=== PATIENT | female | born 1985 | race Caucasian/White ===

== ENCOUNTER 2017-02-13 13:57 | Emergency (ER) | payer OTHER ==
[~2017-02-13] VITALS: Ht 170.2 cm; Wt 98.4 kg
[~2017-02-13 13:57] MED LIST: ABL5; REVIEWED
[2017-02-13 14:07] VITALS: TEMP 36.7; Ht 170.2 cm; Wt 98.4 kg
[2017-02-13 15:38] VITALS: BP 132/73; PULSE 77; O2SAT 98
--- NOTE | 2017-02-13 20:13 | EMERGENCY ROOM VISIT NOTE ---
History Report prepared by Demario: Juan Jeffries Under the Supervision of: Dr. Bill Remy D.O. First contact with patient: 14:26 Chief Complaint: MENTAL HEALTH EVALUATION Stated Complaint: MENTAL HEALTH EVALUATION History of Present Illness The patient is a 31 year old female who presents to the Emergency Room with complaints of persistent anxiety starting 4 years ago. The patient was placed on Abilify from 2004 to 2012. In 2012, the patient was taken off of her anxiety medications. She did not feel comfortable with being taken off of the medication but her psychiatrist thought that she was doing well and took her off of it. She has not been on any psychiatric medications since 2012. Since then, her anxiety has been persistent. She feels as though she needs to be placed back on the Abilify and should never have been taken off of it. She wants to be placed on the Abilify now but is unable to get a psychiatrist appointment until March 29. The patient patient came to the Emergency Room today to be placed back on it. She states that she was functioning better when she was on it. As per mother, the patient is not functioning as well as she was prior to being taken off of the Abilify. Her speech starts to dwindle when her anxiety worsens. The patient currently denies any suicidal or homicidal ideation. She reports a normal appetite and a normal fluid intake. She currently denies any pain. She denies any fevers, chills, or any other complaints. Source of History: patient Onset: 4 years ago Position: other (global) Symptom Intensity: No pain Quality: other (anxiety) Timing: other (persistent) Associated Symptoms: No fevers, No chills Review of Systems See HPI for pertinent positives & negatives. A total of 10 systems reviewed and were otherwise negative. Past Medical & Surgical Medical Problems: (1) Anorexia (2) Anxiety Family History Patient reports no known family medical history. Social History Smoking Status: Never Smoker Marital Status: single Occupation Status: unemployed Current/Historical Medications Miscellaneous Medications Aripiprazole (Abilify *) [Reviewed 10/26/09] Allergies Coded Allergies: Nickel (Unverified Adverse Reaction, Mild, RASH, 10/02/09) Physical Exam Vital Signs Date Time Temp Pulse Resp B/P (MAP) Pulse Ox O2 Delivery O2 Flow Rate FiO2 02/13/17 15:38 77 18 132/73 98 02/13/17 14:07 36.7 84 18 144/74 97 Room Air Physical Exam CONSTITUTIONAL/VITAL SIGNS: Reviewed / noted above. GENERAL: Non-toxic in appearance. INTEGUMENTARY: Warm, dry, and [place]. HEAD: Normocephalic. EYES: without scleral icterus or trauma. ENT/OROPHARYNX: clear and moist. LYMPHADENOPATHY/NECK: Is supple without lymphadenopathy or meningismus. RESPIRATORY: Lungs clear and equal. CARDIOVASCULAR: Regular rate and rhythm. GI/ABDOMEN: Soft and nontender. No organomegaly or pulsatile mass. No rebound or guarding. Normal bowel sounds. EXTREMITIES: Warm and well perfused. BACK: No CVA tenderness. NEUROLOGICAL: Intact without focal deficits. PSYCHIATRIC: normal affect. MUSCULOSKELETAL: Normally developed with good muscle tone. Medical Decision & Procedures ED Course 1426: Previous medical records were reviewed. The patient was evaluated in room A06. A complete history and physical examination was performed. 1500: On reevaluation, the patient is resting comfortably. I discussed the results and findings with the patient and her mother. They verbalized agreement of the treatment plan. The patient was discharged home. Medical Decision Medication Reconciliation: I attest that I have personally reviewed the patient' s current medication list. Patient was found to have a slightly elevated blood pressure due to circumstances. I do not believe that the patient requires hypertension monitoring. differential includes toxic ingestions, self-mutilation, suicidal ideation, suicide attempt, depression. This is a 31-year-old female who presents to the ED with a chief complaint of wanting a prescription for Abilify. The patient states that she has been on it for years ago and she feels like she needs to be back on it. She denies being suicidal or homicidal. The patient's physical exam was unremarkable. She denies any thoughts of harming herself. After discussing with the patient, she tells me that she has an appointment to see a psychiatrist on the . The patient was told that these medications are not medications that her normally prescribed by emergency physician. She was recommended to follow- up with her PCP anyway for her psychiatry visit for this medication. She is felt to be stable for discharge. The patient does not appear to be anxious at this time. Impression Primary Impression: Anxiety and depression Scribe Attestation The scribe's documentation has been prepared under my direction and personally reviewed by me in its entirety. I confirm that the note above accurately reflects all work, treatment, procedures, and medical decision making performed by me. Departure Information Dispostion Home / Self-Care Referrals Geoffrey Vargas M.D. (PCP) Forms HOME CARE DOCUMENTATION FORM, IMPORTANT VISIT INFORMATION Patient Instructions My [facility]
== END 2017-02-13 15:39 | disposition home or self-care (01) ==
LOC: C.EDB 13:59 → C.EDA 15:39
DX: F41.8 Other specified anxiety disorders (principal); Z79.899 Other long term (current) drug therapy; Z91.09 Other allergy status, other than to drugs and biological substances

== ENCOUNTER 2017-02-15 14:21 | Inpatient (IN) | payer OTHER ==
[~2017-02-15] VITALS: Ht 172.7 cm; Wt 101.1 kg
[2017-02-15 14:41] VITALS: O2SAT 96
[2017-02-15 15:32] LABS: URINE APPEARANCE CLEAR (CLEAR); URINE BILIRUBIN NEG (NEG); URINE COLOR YELLOW; URINE EPITHELIAL CELL AUTO 20-30 /lpf (0-5); URINE NITRITE NEG (NEG); URINE PH 6.5 (4.5-7.5); URINE SPECIFIC GRAVITY 1.028 (1.000-1.030); UROBILINOGEN NEG (NEG)
[2017-02-15 15:33] LABS: MANUAL MICROSCOPIC REQUIRED? NO; REVIEW REQ? YES
[2017-02-15 15:51] LABS: BASO % 0.2 %; BASO ABS # 0.02 K/uL (0-0.2); COMPLETE YES; EOS % 0.1 %; HEMATOCRIT 38.2 % (37-47); IG% 0.1 %; LYMPH % 17.4 %; LYMPH ABS # 1.66 K/uL (1.2-3.4); MEAN CELL VOLUME 87.2 fL (80-100); MEAN CORPUSCULAR HEMOGLOBIN 30.8 pg (25-34); MEAN CORPUSCULAR HGB CONC 35.3 g/dl (32-36); MEAN PLATELET VOLUME 10.1 fL (7.4-10.4); MONO % 7.6 %; NEUT % 74.6 %; PLATELET COUNT 282 K/uL (130-400); RED BLOOD COUNT 4.38 M/uL (4.2-5.4); WHITE BLOOD COUNT 9.52 K/uL (4.8-10.8)
[2017-02-15 15:51] LABS: BENZODIAZEPINE, URINE NEG (NEG); COCAINE,URINE NEG (NEG); PHENCYCLIDINE, URINE NEG (NEG)
[2017-02-15 16:11] LABS: ALT/SGPT 28 U/L (12-78); AST/SGOT 15 U/L (15-37); BLOOD UREA NITROGEN 13 mg/dl (7-18); BUN/CREATININE RATIO 23.5 (10-20); CALCIUM 8.8 mg/dl (8.5-10.1); CARBON DIOXIDE 26 mmol/L (21-32); CHLORIDE 105 mmol/L (98-107); CREATININE 0.57 mg/dl (0.60-1.20); GLUCOSE 94 mg/dl (70-99); POTASSIUM 3.1 mmol/L (3.5-5.1); SODIUM 140 mmol/L (136-145)
[2017-02-15 16:22] LABS: ALKALINE PHOSPHATASE 71 U/L (45-117); THYROID STIMULATING HORMONE 0.686 uIu/ml (0.300-4.500)
--- NOTE | 2017-02-15 16:22 | DIAGNOSTIC IMAGING REPORT ---
LEFT TOE(S) MIN 2 VIEWS CLINICAL HISTORY: 31 years-old Female presenting with 1st toe . TECHNIQUE: Frontal and lateral views of the left first toe were obtained. COMPARISON: None. FINDINGS: No acute fracture, malalignment, or radiopaque foreign body. The left first metatarsophalangeal joint and first interphalangeal joints are congruent. No significant degenerative change. IMPRESSION: 1. No acute osseous injury of the left first toe. Electronically signed by: Stevenson Hussein M.D. 02/15/2017 4:21 PM Dictated Date/Time: 02/15/2017 4:20 PM
--- NOTE | 2017-02-15 17:00 | DIAGNOSTIC IMAGING REPORT ---
CT OF THE HEAD WITHOUT CONTRAST CLINICAL HISTORY: Multiple falls. COMPARISON STUDY: No previous studies for comparison. CT DOSE: 1074.96 mGy.cm TECHNIQUE: Helical axial images of the head were obtained without IV contrast. Automated exposure control was utilized for the study. FINDINGS: No acute intracranial hemorrhage, midline shift or mass effect is present. Ventricular system is normal. Basilar cisterns are patent. There are no extra-axial collections. Hitchcock-white differentiation is maintained. There is no calvarial fracture. Visualized portions of the sinuses and mastoid air cells are clear. IMPRESSION: 1. No acute intracranial findings. 2. No calvarial fracture. Electronically signed by: Jay Jay Ramirez M.D. 02/15/2017 4:59 PM Dictated Date/Time: 02/15/2017 4:57 PM
--- NOTE | 2017-02-15 17:26 | EMERGENCY ROOM VISIT NOTE ---
History Report prepared by Demario: Romi Winchester Under the Supervision of: Dr. Jose Linder D.O. First contact with patient: 15:06 Chief Complaint: MENTAL HEALTH EVALUATION Stated Complaint: Mental Health History of Present Illness The patient is a 31 year old female who presents to the Emergency Room with complaints of worsening paranoia over the past three days. The patient's mother states that the patient has a history of schizophrenia and was previously on Abilify from 5217-3785. She states that the patient was taken off Abilify by her psychiatrist because the patient was doing exceptionally well. The patient's mother states that for the past four years the patient has continued to do well up until three days ago. She states that the patient came to her three days ago and requested that she gets help because she was not feeling herself. The patient's mother states that they tried getting in contact with her psychiatrist but found that he had retired. She states that the patient was referred to a new psychiatrist, but will not be seen until March 29. The patient's mother states that the patient required immediate attention and states that the patient was evaluated at [facility] and the emergency department, but denies getting any immediate help. She states that she took the patient to [place] two days ago and talked. The patient's mother states that she then took the patient home so she could continue working on a project at home. She states that the patient became more paranoid, secluded, a decrease in appetite, and had more broken up speech. The patient's mother states that the patient took a 500 pound treadmill from their house to the garbage after feeling that it was a sign from the devil. She states that the patient has decompensated and has not showered in several days. Pt denies headache, change in vision, fevers, chest pain, shortness of breath, nausea, vomiting, diarrhea, pain with urination, and melena. Source of History: parent (mother) Onset: three days ago Position: other (global) Quality: other (paronia) Timing: worsening Note: Associated Symptoms: seclusion, decrease in appetite, broken speech, decompensation, not showered Review of Systems See HPI for pertinent positives & negatives. A total of 10 systems reviewed and were otherwise negative. Past Medical & Surgical Medical Problems: (1) Anorexia (2) Anxiety (3) Schizophrenia Family History Patient reports no known family medical history. Social History Smoking Status: Former Smoker Marital Status: single Housing Status: lives with family Occupation Status: unemployed Current/Historical Medications No Active Prescriptions or Reported Meds Allergies Coded Allergies: Nickel (Unverified Adverse Reaction, Mild, RASH, 02/15/17) Physical Exam Vital Signs Date Time Temp Pulse Resp B/P (MAP) Pulse Ox O2 Delivery O2 Flow Rate FiO2 02/15/17 14:41 37.0 72 20 131/105 96 Room Air Physical Exam GENERAL: Sitting up in bed, disheveled, no acute distress. EYE EXAM: normal conjunctiva, PERRL and EOM's intact OROPHARYNX: no exudate, no erythema, lips, buccal mucosa, and tongue normal and mucous membranes are moist NECK: supple, no nuchal rigidity, no adenopathy, non-tender CHEST WALL: Stable to compression anteriorly and posteriorly. LUNGS: Clear to auscultation. Normal chest wall mechanics HEART: no murmurs, S1 normal and S2 normal ABDOMEN: abdomen soft, non-tender, normo-active bowel sounds, no masses, no rebound or guarding. PELVIS: Stable to compression anteriorly and posteriorly. BACK: Back is symmetrical on inspection and there is no deformity, no midline tenderness, no CVA tenderness. SKIN: Diffuse bruising on upper and lower extremities. No rashes UPPER EXTREMITIES: upper extremities are grossly normal. LOWER EXTREMITIES: No pitting edema. NEURO EXAM: Alert, intermittently making 2-3 word statements, poor eye contact, no focal deficit. PSYCH: Flat affect with delusions and paranoia per mom, withdrawn, not answering all questions. Medical Decision & Procedures ER Provider Diagnostic Interpretation: Radiology results as stated below per my review and the radiologist's interpretation: LEFT TOE(S) MIN 2 VIEWS CLINICAL HISTORY: 31 years-old Female presenting with 1st toe . TECHNIQUE: Frontal and lateral views of the left first toe were obtained. COMPARISON: None. FINDINGS: No acute fracture, malalignment, or radiopaque foreign body. The left first metatarsophalangeal joint and first interphalangeal joints are congruent. No significant degenerative change. IMPRESSION: 1. No acute osseous injury of the left first toe. Electronically signed by: Stevenson Hussein M.D. 02/15/2017 4:21 PM Dictated Date/Time: 02/15/2017 4:[address] OF THE HEAD WITHOUT CONTRAST CLINICAL HISTORY: Multiple falls. COMPARISON STUDY: No previous studies for comparison. CT DOSE: 1074.96 mGy.cm TECHNIQUE: Helical axial images of the head were obtained without IV contrast. Automated exposure control was utilized for the study. FINDINGS: No acute intracranial hemorrhage, midline shift or mass effect is present. Ventricular system is normal. Basilar cisterns are patent. There are no extra-axial collections. Hitchcock-white differentiation is maintained. There is no calvarial fracture. Visualized portions of the sinuses and mastoid air cells are clear. IMPRESSION: 1. No acute intracranial findings. 2. No calvarial fracture. Electronically signed by: Jay Jay Ramirez M.D. 02/15/2017 4:59 PM Dictated Date/Time: 02/15/2017 4:57 PM Laboratory Results 02/15/17 15:21 Red Blood Count 4.38, Mean Corpuscular Volume 87.2, Mean Corpuscular Hemoglobin 30.8, Mean Corpuscular Hemoglobin Concent 35.3, Mean Platelet Volume 10.1, Neutrophils (%) (Auto) 74.6, Lymphocytes (%) (Auto) 17.4, Monocytes (%) (Auto) 7.6, Eosinophils (%) (Auto) 0.1, Basophils (%) (Auto) 0.2, Neutrophils # (Auto) 7.10, Lymphocytes # (Auto) 1.66, Monocytes # (Auto) 0.72, Eosinophils # (Auto) 0.01, Basophils # (Auto) 0.02 02/15/17 15:21 Test 02/15/17 00:00 02/15/17 15:20 02/15/17 15:21 Urine Color YELLOW Urine Appearance CLEAR (CLEAR) Urine pH 6.5 (4.5-7.5) Urine Specific [place] 1.028 (1.000-1.030) Urine Protein 1+ (NEG) Urine Glucose (UA) NEG (NEG) Urine Ketones TRACE (NEG) Urine Occult Blood NEG (NEG) Urine Nitrite NEG (NEG) Urine Bilirubin NEG (NEG) Urine Urobilinogen NEG (NEG) Urine Leukocyte Esterase NEG (NEG) Urine WBC (Auto) 1-5 /hpf (0-5) Urine RBC (Auto) 0-4 /hpf (0-4) Urine Hyaline Casts (Auto) 1-5 /lpf (0-5) Urine Epithelial Cells (Auto) 20-30 /lpf (0-5) Urine Bacteria (Auto) NEG (NEG) Urine Crystals CALCIUM OXALATE (NONE Urine Opiates Screen NEG (NEG) Urine Methadone, Qualitative NEG (NEG) Urine Barbiturates NEG (NEG) Urine Phencyclidine (PCP) Level NEG (NEG) Ur Amphetamine/Methamphetamine NEG (NEG) MDMA (Ecstasy) Screen NEG (NEG) Urine Benzodiazepines Screen NEG (NEG) Urine Cocaine Metabolite NEG (NEG) Urine Marijuana (THC) NEG (NEG) Bedside Glucose 90 mg/dl (70-90) White Blood Count 9.52 K/uL (4.8-10.8) Red Blood Count 4.38 M/uL (4.2-5.4) Hemoglobin 13.5 g/dL (12.0-16.0) Hematocrit 38.2 % (37-47) Mean Corpuscular Volume 87.2 fL (80-100) Mean Corpuscular Hemoglobin 30.8 pg (25-34) Mean Corpuscular Hemoglobin Concent 35.3 g/dl (32-36) Platelet Count 282 K/uL (130-400) Mean Platelet Volume 10.1 fL (7.4-10.4) Neutrophils (%) (Auto) 74.6 % Lymphocytes (%) (Auto) 17.4 % Monocytes (%) (Auto) 7.6 % Eosinophils (%) (Auto) 0.1 % Basophils (%) (Auto) 0.2 % Neutrophils # (Auto) 7.10 K/uL (1.4-6.5) Lymphocytes # (Auto) 1.66 K/uL (1.2-3.4) Monocytes # (Auto) 0.72 K/uL (0.11-0.59) Eosinophils # (Auto) 0.01 K/uL (0-0.5) Basophils # (Auto) 0.02 K/uL (0-0.2) RDW Standard Deviation 40.3 fL (36.4-46.3) RDW Coefficient of Variation 12.5 % (11.5-14.5) Immature Granulocyte % (Auto) 0.1 % Immature Granulocyte # (Auto) 0.01 K/uL (0.00-0.02) Anion Gap 9.0 mmol/L (3-11) Estimated GFR () 142.2 Estimated GFR (Non- 122.7 BUN/Creatinine Ratio 23.5 (10-20) Calcium Level 8.8 mg/dl (8.5-10.1) Total Bilirubin 0.4 mg/dl (0.2-1) Direct Bilirubin < 0.1 mg/dl (0-0.2) Aspartate Amino Transf (AST/SGOT) 15 U/L (15-37) Alanine Aminotransferase (ALT/SGPT) 28 U/L (12-78) Alkaline Phosphatase 71 U/L (45-117) Total Protein 7.1 gm/dl (6.4-8.2) Albumin 3.9 gm/dl (3.4-5.0) Thyroid Stimulating Hormone (TSH) 0.686 uIu/ml (0.300-4.500) Ethyl Alcohol mg/dL < 3.0 mg/dl (0-3) Laboratory results per my review. Medications Administered Medications (Trade) Dose Ordered Sig/Areli Route Start Time Stop Time Status Last Admin Dose Admin Lorazepam (Ativan Tab) 1 mg NOW STAT SL 02/15/17 17:51 02/15/17 17:52 DC 02/15/17 18:52 1 MG Risperidone (Risperdal Tab) 1 mg NOW ONCE PO 02/15/17 18:00 02/15/17 18:02 DC 02/15/17 18:53 1 MG ED Course ED COURSE: Vital signs were reviewed and showed normal vitals The patients medical record was reviewed The above diagnostic studies were performed and reviewed. ED treatments and interventions as stated above. 1517: The patient was evaluated in room A5. A complete history and physical examination was performed. 1720: The patient is currently medically clear and [facility] is evaluating the patient. 1751: Ordered Ativan Tab 1 mg SL. 1759: Per [facility], the patient has been accepted to their department for further evaluation and treatment. The patient's family is in agreement with the treatment plan. 1800: Ordered Risperidone 1 mg PO. Medical Decision Differential diagnosis: Etiologies such as mood disorder, infection, hypoglycemia, electrolyte abnormalities, cardiac sources, intracerebral event, toxicologic, neurologic, as well as others were entertained. Medication Reconciliation: I attest that I have personally reviewed the patient' s current medication list. Blood pressure screening: Patient was found to have normal blood pressure on screening and does not require follow-up. Patient is a 31-year-old female who presents the ER for delusions, depression and psychosis. She was brought in on a 302 warrant by her mother. She has been moving furniture around the house and took a treadmill out of the house because it was a sign of the devil. She is very reserved on my exam. CT head was negative. Labs were unremarkable. She does have multiple bruises. X-ray of her left foot was negative. She does clearly need inpatient treatment. She is evaluated by psychiatry and they agreed. She was admitted to [facility] [address] following a dose of Ativan. Impression Primary Impression: Mood disorder Additional Impression: Psychosis Scribe Attestation The scribe's documentation has been prepared under my direction and personally reviewed by me in its entirety. I confirm that the note above accurately reflects all work, treatment, procedures, and medical decision making performed by me. 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
[2017-02-15] MEDS ORDERED: LORAZEPAM 1 MG TAB SL STA (17:51)
[2017-02-15] MEDS ORDERED: LORAZEPAM 1 MG TAB PO PRN (18:00)
[2017-02-15] MEDS ORDERED: ALUMINUM/MAGNESIUM SUSP 30 ML UDC PO PRN (18:00)
[2017-02-15] MEDS ORDERED: BISMUTH SUBSALICYLATE PER ML OMNICELL CHARGE PO PRN (18:00)
[2017-02-15] MEDS ORDERED: hydrOXYzine HCL 25 MG TAB PO PRN ×2 (18:00)
[2017-02-15] MEDS ORDERED: SODIUM CHLORIDE 0.65% NA SOLN 45 ML (OCEAN) PRN (18:00)
[2017-02-15] MEDS ORDERED: MAGNESIUM HYDROXIDE SUSP 30 ML UDC PO PRN (18:00)
[2017-02-15] MEDS ORDERED: ACETAMINOPHEN 325 MG TAB PO PRN (18:00)
[2017-02-15] MEDS ORDERED: RISPERIDONE 1 MG TAB PO ONE (18:00)
[2017-02-15] MEDS ORDERED: HALOPERIDOL LACTATE 5 MG/ML 1 ML VIAL IM PRN (18:00)
[2017-02-15 19:48] VITALS: BP 131/105; PULSE 72; TEMP 37; BMI 33.9
[2017-02-15] MEDS: RISPERIDONE ODT 1MG PO SCH (21:39)
[2017-02-16 07:02] VITALS: BP_SYST 120; BP_SYST 128; BP_DIAS 70; BP_DIAS 76; PULSE 86; PULSE 92; TEMP 37
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
[2017-02-16] MEDS: RISPERIDONE ODT 1MG PO SCH (10:03)
--- NOTE | 2017-02-16 12:36 | Psychiatric History & Physical ---
History Date of Service Feb 16, 2017. Identifying Data Petrona Simmons is a 31-year-old female who currently lives in [place], [place] with her mother. Petrona Simmons was admitted on a 201 voluntary commitment. Patient is admitted from home. The patient was brought to the ED by the family. Information provided by the patient is considered to be unreliable. Chief Complaint "I've been feeling vulnerable.". History of Present Illness The patient is a 31-year-old woman with a known diagnosis of schizophrenia. She presented yesterday in the emergency department with worsening paranoia, disorganized thinking, thought blocking, and anxiety. According to the record, the patient had been seen in the emergency room on 02/13/2017 and at that time asked for a prescription for aripiprazole, but she was referred back to an outpatient provider. The patient, herself, is not able to provide a coherent history, due to frequent thought blocking and possible distraction by auditory hallucinations. She been followed by a local psychiatrist who has since retired , and she had been referred for an outpatient evaluation by a psychiatrist, but cannot be seen until March 29. According to the patient's mother, with whom the patient lives, the patient had been showing symptoms such as decreased appetite, "broken up speech," and neglect of self-care. For example, she had not been showering. She was also demonstrating questionable judgment. For example, she had attempted to move a 500 pound [facility] Mother's report includes her assessment the patient was paranoid , and the mother noted the patient was making references to getting "signs" from "the devil." (This belief is not consistent with the patient's anabaptist or culture.) The patient, herself, reports that she had done very well on Abilify in doses that range between 5 mg and 15 mg. However, in December 2012 she ran out of her supply of Abilify, decided to "take myself off it," and felt as if she was doing reasonably well. A month later, she lost an uncle to suicide, and she felt that the fact that she was able to pass through this medical event without becoming ill was a sign that she was stable off medication. Apparently , she returned to her outpatient doctor's practice in May 2013 and according the patient her doctor agreed that it did not appear that she will require the medication any further and discontinued Abilify. She indicates that she has been lost to psychiatric follow-up since 2013. It is difficult to obtain an intercurrent history, but apparently the patient did reasonably well in the community until approximately a month ago, at which time the patient's mother began to notice the above reference symptoms of paranoia, disorganized thinking, and thought blocking. The patient has difficulty responding to questions concerning vegetative symptoms of depression. However, when I ask her repeatedly if she had been feeling sad or depressed, she became tearful, without answering the question. She also had difficulty formulating a response to questions such as, "are you having trouble sleeping," "have you noticed a change in her appetite," and "have you been having crying spells." When asked to explain her assertion that she was feeling "horrible," she circled the question repeatedly, but finally said that "people are very mean to me," in reference to people who live in [place] [facility] [place]. She is then unable to give an example of the form that the "meanness" takes, and she finally perseverated by repeatedly saying, "It makes me feel isolated [to live in [place]]. I want to move away from there. It's an hour to [place]. I'm isolated." She denies any history of neglect or abuse. She also does not endorse any history of bethanie or hypomania, and no such history is identified by the patient's mother. However, the patient's father apparently carries a diagnosis of bipolar affective disorder. Past Psychiatric History Current OP Treatment: no current treatment Prior OP Treatment: psychiatrist, therapist Prior [facility] Access to a Gun: No Suicide Attempts: No Past Medical/Surgical History History of Concussion/Seizure: No Allergies Allergies: Coded Allergies: Nickel (Unverified Adverse Reaction, Mild, RASH, 02/15/17) Home Medications No Active Prescriptions or Reported Meds Family History FH: bipolar disorder FATHER Suicide Paternal Uncle History of Suicide: Yes History of Substance Abuse: No Psychiatric History: Yes The patient reports that her paternal uncle committed suicide in 2012. She says that she does not think that he carried his psychiatric diagnosis at the time of his suicide, and she says that she doesn't know or is unable to recall the circumstances of his suicide. Alcohol Use Alcohol Use In Past 12 Months: No AUDIT Total Score: 0 Smoking Use Smoking Status: Never Smoker Substance History The patient denies any abuse of alcohol or other drugs. Personal History Lives in: [place] with her mother Education: started high school (the patient says she dropped out of high school in the ninth grade because her parents were and she wanted to move to [place] with her father. She says that she can't recall why she didn't enroll in high school in [place], but indicates that her father may have been having a manic episode at the time.) Relationship History: never (the patient says that she engaged in sexual activity when she was much younger, but has been sexually inactive for at least 10 years. She says that she has no romantic attachments, is not interested in sex, and has no plan to become .) Children: none Legal History: none Psychological Trauma History: Significant Loss Review of Systems Constitutional: denies no symptoms reported, denies see HPI, denies chills, denies diaphoresis, denies fever, denies malaise, denies weakness, denies other Eyes: denies: no symptoms, as stated in HPI, eye pain, tearing, itching, redness, discharge, double vision, visual changes, blurred vision, photophobia, other ENT: denies: no symptoms reported, see HPI, ear pain, ear discharge, loss of hearing, tinnitus, nasal pain, nasal congestion, rhinorrhea, epistaxis, sore throat, stidor, throat swelling, mouth pain, mouth swelling, dental pain, gum swelling, other Cardiovascular: denies: no symptoms reported, see HPI, chest pain, chest tightness, chest pressure, diaphoresis, palpitations, syncope, other Respiratory: denies: no symptoms reported, see HPI, cough, orthopnea, short of breath, stridor, wheezing, sputum production, cyanosis, KILPATRICK, PND, other Gastrointestinal: denies no symptoms reported, denies see HPI, denies abdominal pain, denies constipation, denies diarrhea, denies nausea, denies vomiting, denies other Genitourinary - Female: denies: no symptoms, see HPI, rash, amenorrhea, dysmenorrhea, menorrhagia, metrorrhagia, , vaginal bleeding, vaginal itching, vaginal discharge, vulvadynia, other (patient reports she has regular menses. Her most recent menstrual period was approximately 2 weeks ago.) Musculoskeletal: no symptoms reported, denies see HPI, denies back pain, denies gout, denies joint pain, denies joint swelling, denies muscle pain, denies muscle stiffness, denies neck pain, denies other Integumentary: denies change in hair/nails, denies dryness, denies lesions, denies lumps, denies rash, other (the patient has multiple ecchymoses about her forearms. She explains that this happened when she was in the process of "moving a lot of heavy things by myself" at home.) Neurologic: denies: no symptoms, see HPI, headache, numbness, paresthesias, pre -existing deficit, seizure, tingling, tremors, general weakness, tics, focal weakness, vertigo, lethargy, memory loss, dizziness, other Endocrine: denies: no symptoms, as stated in HPI, cold intolerance, heat intolerance, hair changes, goiter, polydipsia, polyuria, skin changes, other Hematologic / Lymphatic: denies: no symptoms, as stated in HPI, abnormal clotting, adenopathy, anemia, easy bleeding, easy bruising, gums bleeding, petechiae, other Examination Physical Examination A physical exam was performed in the ER prior to admission to the unit. I accept that physical as correct/medical clearance for the inpatient physical exam. Vital Signs Vital Signs Past 12 Hours Date Time Temp Pulse Resp B/P (MAP) Pulse Ox O2 Delivery O2 Flow Rate FiO2 02/16/17 07:02 37.0 86 16 128/76 92 120/70 Laboratory Results Last 24 Hours Test 02/15/17 15:20 02/15/17 15:21 Bedside Glucose 90 mg/dl White Blood Count 9.52 K/uL Red Blood Count 4.38 M/uL Hemoglobin 13.5 g/dL Hematocrit 38.2 % Mean Corpuscular Volume 87.2 fL Mean Corpuscular Hemoglobin 30.8 pg Mean Corpuscular Hemoglobin Concent 35.3 g/dl Platelet Count 282 K/uL Mean Platelet Volume 10.1 fL Neutrophils (%) (Auto) 74.6 % Lymphocytes (%) (Auto) 17.4 % Monocytes (%) (Auto) 7.6 % Eosinophils (%) (Auto) 0.1 % Basophils (%) (Auto) 0.2 % Neutrophils # (Auto) 7.10 K/uL Lymphocytes # (Auto) 1.66 K/uL Monocytes # (Auto) 0.72 K/uL Eosinophils # (Auto) 0.01 K/uL Basophils # (Auto) 0.02 K/uL RDW Standard Deviation 40.3 fL RDW Coefficient of Variation 12.5 % Immature Granulocyte % (Auto) 0.1 % Immature Granulocyte # (Auto) 0.01 K/uL Sodium Level 140 mmol/L Potassium Level 3.1 mmol/L Chloride Level 105 mmol/L Carbon Dioxide Level 26 mmol/L Anion Gap 9.0 mmol/L Blood Urea Nitrogen 13 mg/dl Creatinine 0.57 mg/dl Estimated GFR () 142.2 Estimated GFR (Non- 122.7 BUN/Creatinine Ratio 23.5 Random Glucose 94 mg/dl Calcium Level 8.8 mg/dl Total Bilirubin 0.4 mg/dl Direct Bilirubin < 0.1 mg/dl Aspartate Amino Transf (AST/SGOT) 15 U/L Alanine Aminotransferase (ALT/SGPT) 28 U/L Alkaline Phosphatase 71 U/L Total Protein 7.1 gm/dl Albumin 3.9 gm/dl Thyroid Stimulating Hormone (TSH) 0.686 uIu/ml Ethyl Alcohol mg/dL < 3.0 mg/dl Mental Examination During interview pt is: alert and oriented, cooperative Appearance: appropriately dressed Eye contact is: poor Motor behavior is: steady gait & station, psychomotor retardation Speech: other (halting, and sometimes the patient falls mute for as long as 60 seconds before saying "what?") Affect: tearful, anxious Mood is: other (The patient failed to respond to multiple questions concerning her mood. However, she became tearful on several occasions, and had difficulty explaining what she was thinking about at the times of her tearfulness.) Thought process: blocking, circumstantial, looseness of associations, perseveration Thought content: preoccupation, paranoid (The patient is somewhat guarded, but makes statements such a "people in my town are mean to me." She had told her mother that she was receiving "signs from the devil" and that she wasn't "safe. ") Suicidal thought are: denied Homicidal thoughts are: denied Hallucinations: auditory (although the patient initially denies that she has ever expressed auditory hallucinations she then equivocates and when I told her that it appears that she was currently experiencing hallucinations and ask her to tell me what had just been sad, she started to say, "he said" And then stop speaking. She does appear to be responding to internal stimuli at times during the interview.) Cognition: memory grossly intact, other (it is difficult to fully assess the patient's cognitive functioning. She does recall the names of her medications, the dosages of these medications, and the identity of past providers. She is also able to give limited information about her past psychiatric hospitalizations.) Intelligence estimated to be: average Insight: poor Judgement: impaired Impression / Recommendations Impression This 31-year-old woman presents with a known history of schizophrenia. Her most remarkable symptoms currently include disorganized thinking, and a history of recent disorganized behavior, such as attempting to move heavy objects for no particular purpose, by herself. She also appears to be responding to internal stimuli, and although she is very guarded about her recent experiences at home, her mother reports that the patient has become increasingly more distrustful and has been making statements such as "it's a sign of the devil," when such statements are not part of the patient's cultural or adventist belief system. At the same time, she does present with certain symptoms that are consistent with aggression, including decreased appetite, poor sleep, neglect of self-care, and she cried on at least 2 occasions during the interview, although she was unable or unwilling to identify what thought she may have been experiencing at the time of her tearfulness. She tells me that she responded very well to aripiprazole at doses of 5-15 mg daily. She has received 2 doses of risperidone, and says that she doesn't like how it makes her feel, although she is not able to give voice to any specific relative complaint. Given her reported past history of favorable response to Abilify (aripiprazole), and in view of her belief of this medication is "the right medicine," I will discontinue risperidone and begin Abilify 10 mg daily. We will also give a 1 time evening dose of Abilify 5 mg this evening near bedtime. Inventory Assets Strengths: Supportive family. Help-seeking. Cooperative. History of positive relationship with outpatient provider. Reported good response to medications in the past. Needs: The patient states currently he appears to be experiencing psychotic features, including persecutory delusions and (although she was unwilling to elaborate during the interview, and this conclusion is drawn from information provided by the patient's mother), apparent auditory hallucinations, thought blocking, and disorganized thinking with some loosening of associations. Risk Factors Assessment : Yes /single/: Yes Higher / Fall in social status: No Access to guns: No Health problems: No Mental Health Diagnoses: Yes Substance use disorders: No Previous attempt: No Previous attempt;highly lethal: No Previous attempt; planned: No Previous attempt; didn't tell: No Family history of suicide: Yes Previous psychiatric stay: Yes Hopelessness: No Smoker: No Protective Factors Assessment Episcopal beliefs: Yes : No Responsible for young children: No Employed: No Stable relationships: Yes Supportive family: Yes Good rapport with provider: Yes Absence of risk factors above: No Recommendations (1) Schizophrenia (2) Mood disorder The patient's primary diagnosis is schizophrenia. We do not have sufficient clinical data to diagnosis schizoaffective disorder resin time. It would appear that the patient is currently experiencing an exacerbation of schizophrenia, but she also presents with certain features that are consistent with depression, including decreased food consumption, insomnia, neglect of self -care, and tearfulness. CPT Code Initial Hospital Care: 62163 Problem Qualifiers (1) Schizophrenia: Schizophrenia type: unspecified Qualified Codes: F20.9 - Schizophrenia, unspecified
[2017-02-16 14:12] LABS: PREG INTERNAL NEGATIVE QC NEG CLEAR BACKGROUND; PREG INTERNAL POSITIVE QC POS CONTROL LINE
[2017-02-16] MEDS ORDERED: ARIPIprazole TAB 5 MG TAB PO ONE (22:00)
[2017-02-17 06:45] VITALS: BP_SYST 139; BP_SYST 141; BP_DIAS 83; BP_DIAS 86; PULSE 73; PULSE 81; TEMP 37
[2017-02-17] MEDS ORDERED: ARIPIprazole TAB 10 MG TAB PO SCH (09:00)
--- NOTE | 2017-02-17 10:27 | Medical Student: BHU Only ---
Psychiatric Progress Note SUBJECTIVE: The patient was seen and assessed today, and progress was reviewed with nursing. The patient reports doing "fine". Sleep was "not good"; noted to be for 6.5 hours by staff. She tolerated 10mg abilify well last night and does not note any side effects. When asked about goals for day, she had none. When asked for goals of treatment on unit, she responded "Just doing normal things, like routine." She did participate briefly in group activity time yesterday, but spent most of day in room. It has been noted by staff that her current roommate may be bothering her. She also acknowledged that she would prefer her own room or a different roommate if at all possible. Otherwise, she has no concerns. ROS: Denies feelings of sadness, hopelessness. Denies SI/HI. Denies auditory/visual hallucinations, delusions. Says she has good appetite. Is experiencing poor sleep. MSE: Appearance is that of a groomed, casually dressed female of stated age. She is cooperative with the interview, but is slow to respond. Eye contact is poor. Motor behavior is somewhat agitated, twisting back and forth in chair. Speech: Slow and monotone. Affect: Blunted. Mood: "Fine". Thought process: Significant thought blocking, answers questions appropriately with some prompting. Thought content: without delusions or confabulations. Answers seem appropriate, just delayed. She does appear to still be responding to internal stimuli. Perception: Without illusions, hallucinations. Fund of knowledge is appropriate. Intelligence is appropriate for level of education. Insight is estimated to be limited. Judgment is estimated to be poor. ASSESSMENT: This is a 31 y/o female with a likely exacerbation of schizophrenia. She has been treated and responded well to abilify in the past. She does seem to be somewhat more appropriate and less guarded than yesterday. She was more willing to interview and seemed to be more appropriate in her responses. However, her thought blocking is still significant, and though she does continue to deny hallucinations she seems preoccupied with internal stimuli. PLAN: 1. Schizophrenia a. Increase abilify to 15 mg. b. May have difficulty covering abilify, as patient does not have insurance. Social work is looking into payment options. 2. Rooming situation a. Will speak with staff in regards to potential for transfer of different roommate, or allowing patient to sleep in quiet room at night.
--- NOTE | 2017-02-17 12:20 | Psychiatric Progress Notes ---
Progress Note Date of Service Feb 17, 2017. Interval History The patient was admitted from the emergency department on 02/15/2017 due to increased confusion, respiratory believes, disorganized thinking and thought blocking. She reports that she responded favorably to aripiprazole in the past , and we her back on this medication. Her thinking has begun to clear, and her thought blocking has improved. Chief Complaint "I think I'm better." Subjective Patient was seen & assessed interval progress reviewed with Treatment Team. In addition, I saw her individually in my office in order to assess her response to treatment, repeated mental status examination, and respond to questions and concerns that might arise. I also offered the patient opportunity to convert her involuntary admission status to voluntary, and the patient agreed. She tells me that she feels that she is somewhat better, and more specifically says that she thinks she is now thinking "somewhat more clearly." She notes that she did not sleep well last night, although she said she slept she didn't sleep "a good quality sleep." Today, she notes that she is feeling "a little drowsy. " She does express insight into the fact that her thinking had been "confused, kind of," and she was able to identify certain personal goals for herself, such as finding ways to be less isolated at home. We also discussed the fact that she has been somewhat uncomfortable with her roommate. Although the roommate whom she says, has been "perfectly appropriate," she acknowledges that she has been made a little uncomfortable by the roommate because the roommate has spoken of performing cunnilingus to other people on the unit. She said that the roommate has not approached her sexually, but that she is "a little uncomfortable." She also says that mostly she is uncomfortable because she is used to having her own room. Patient reports that she is tolerating Abilify well, but does endorse sedation that she believes is because of poor sleep last night, but may also be related to Abilify resumption. We discussed the possibility of a nighttime medication for sleep, but the patient said that she would prefer to not take an additional medication at this time because she feels that she is "just adjusting to a new place." Review of Systems Constitutional: No fever, No chills, No sweats, No weight loss, No weakness, No fatigue, No problem reported ENT: No hearing loss, No unusual epistaxis, No nasal symptoms, No sore throat, No tinnitus, No dental problems, No trouble swallowing, No problem reported Respiratory: No cough, No sputum, No wheezing, No shortness of breath, No dyspnea on exertion, No dyspnea at rest, No hemoptysis, No problem reported Cardiovascular: No chest pain, No orthopnea, No PND, No edema, No claudication , No palpitations, No problem reported Abdomen: No pain, No nausea, No vomiting, No diarrhea, No constipation, No GI bleeding, No problem reported Musculoskeletal: No joint pain, No muscle pain, No swelling, No calf pain, No problem reported Neurologic: No memory loss, No paralysis, No weakness, No numbness/tingling, No vertigo, No balance problems, No problem reported Psychiatric: + anxiety, + insomnia Integumentary: No rash, No itch, No new/changing skin lesions, No color change , No bleeding, No problem reported Sleep Information Total Hours of Sleep: 6.50 Meal Information Percent of Breakfast Consumed: 100 Percent of Lunch Consumed: 0 Percent of Dinner Consumed: 75 Mental Status Exam During interview pt is: alert and oriented, cooperative Appearance: appropriately dressed Eye contact is: fair Motor behavior is: steady gait & station, psychomotor retardation (improved) Speech: other (Today, the patient's speech is more spontaneous and fluid. She continues to "block" periodically, almost as if distracted by internal stimuli. However, when this occurs, she has begun to announce that it's happening by saying, "just give me a minute." ) Affect: blunted (although she smiles appropriate, and laughs appropriately on a couple occasions during our session.), anxious Mood is: other ("okay.") Thought process: blocking (although the patient continues to exhibit thought blocking, this is significantly less likely to occur today. Also, as above, she has begun to announce that she is having trouble collecting her thoughts by saying, "just give me a second," or "I'm trying to get my thoughts together."), perseveration Thought content: paranoid (the patient did not voice any specific persecutory delusions today. She was somewhat un-trusting when she was asked if she wanted to sign a voluntary agreement, but after asking several questions agreed to consent to voluntary inpatient treatment.) Suicidal thought are: denied Homicidal thoughts are: denied Hallucinations: auditory (the patient continues to say that she is not expressing auditory hallucinations. While this may be the case, she sometimes appears to be responding to internal stimuli. For example, she will start to speak, turned her head in another direction, stop speaking looks slightly distressed, and then say "Could you repeat the question?") Cognition: memory grossly intact, other (it is difficult to fully assess the patient's cognitive functioning. She does recall the names of her medications, the dosages of these medications, and the identity of past providers. She is also able to give limited information about her past psychiatric hospitalizations.) Intelligence estimated to be: average Insight: fair Judgement: limited Impression This 31-year-old woman presents with a known history of schizophrenia. Her most remarkable symptoms remains disorganized thinking disorganized thinking, and and thought blocking. However, her associations become more tight, and she is blocking significantly less frequently. She she does continue to appear to possibly be responding to internal stimuli, although she this is not occurring. The patient's affect is somewhat brighter and more animated today. She describes her mood as "okay," and she smiles appropriately on several times during the session, and laughs appropriately as well. However, for the most part her affect is somewhat blunted. The plan is to increase aripiprazole to 15 mg daily, beginning tomorrow. Plan (1) Schizophrenia 02/17 -- The patient's thought processes appear to have tightened. Her associations are significantly less loose today, and although she continues to experience thought blocking, these instances are significantly less frequent. I suspect that she is experiencing auditory hallucinations, as evidenced by the fact that she often appears to be responding to, and distracted by internal stimuli. However, the patient reports that this is not the case. Information provided by the patient's social service agency director suggests that the patient's mother, while very supportive, may be minimizing the patient's behaviors and conditions , so that the symptoms currently in evidence may have been present for longer period of time that originally described. Today, we are increasing the dose of aripiprazole from 10 mg daily to 15 mg daily. She continues to have some difficulty sleeping, but she slept 6-1/2 hours last night. The patient reports that this was true, but that she felt like her sleep was "fitful." She does not wish to be prescribed a hypnotic medication at this time. (2) Mood disorder The patient's primary diagnosis is schizophrenia. We do not have sufficient clinical data to diagnosis schizoaffective disorder at this time. It would appear that the patient is currently experiencing an exacerbation of schizophrenia, but she also presents with certain features that are consistent with depression, including decreased food consumption, insomnia, neglect of self -care, and tearfulness. 02/17 -- the patient reports that her mood is "better" and she says that today her mood is "okay." She continues to look blunted, but she is smiling appropriately more frequently, and on several occasions laughed appropriately. She notes that her anxiety has also diminished. Discharge / Aftercare Planning Primary Care Physician: Name: [facility] Phone Number: [phone] Appointment Notes: as needed Psychiatrist: Name: Ritika Watkins Date of Appointment: Mar 29, 2017 Time of Appointment: 930 Therapist: Name: gypsy Divorce Attorney: Name: gypsy Visit Code E&M Code: 51967 Inventory Assets Strengths: Supportive family. Help-seeking. Cooperative. History of positive relationship with outpatient provider. Reported good response to medications in the past. Needs: The patient states currently he appears to be experiencing psychotic features, including persecutory delusions and (although she was unwilling to elaborate during the interview, and this conclusion is drawn from information provided by the patient's mother), apparent auditory hallucinations, thought blocking, and disorganized thinking with some loosening of associations. Risk Factors Assessment : Yes /single/: Yes Higher / Fall in social status: No Health problems: No Mental Health Diagnoses: Yes Substance use disorders: No Previous attempt: No Previous attempt;highly lethal: No Previous attempt; planned: No Previous attempt; didn't tell: No Family history of suicide: Yes Previous psychiatric stay: Yes Hopelessness: No Smoker: No Protective Factors Assessment Methodist beliefs: Yes : No Responsible for young children: No Employed: No Stable relationships: Yes Supportive family: Yes Good rapport with provider: Yes Absence of risk factors above: No Data Vital Signs Last 24 Hrs: Date Time Temp Pulse Resp B/P (MAP) Pulse Ox O2 Delivery O2 Flow Rate FiO2 02/17/17 06:45 37.0 73 16 141/83 81 139/86 Meds Administered Last 24 Hrs: Meds Administered (Past 24Hrs) Medications (Trade) Dose Ordered Sig/Areli Route Start Time Stop Time Status Last Admin Dose Admin Lorazepam (Ativan Tab) 1 mg NOW STAT SL 02/15/17 17:51 02/15/17 17:52 DC 02/15/17 18:52 1 MG Risperidone (Risperdal Tab) 1 mg NOW ONCE PO 02/15/17 18:00 02/15/17 18:02 DC 02/15/17 18:53 1 MG Risperidone (Risperdal M Tab) 1 mg BID PO 02/15/17 23:00 02/16/17 13:26 DC 02/16/17 10:03 1 MG Aripiprazole (Abilify Tab) 5 mg HS ONCE PO 02/16/17 22:00 02/16/17 22:01 DC 02/16/17 21:28 5 MG Aripiprazole (Abilify Tab) 10 mg QAM PO 02/17/17 09:00 03/19/17 08:59 02/17/17 10:33 10 MG Problem Qualifiers (1) Schizophrenia: Schizophrenia type: unspecified Qualified Codes: F20.9 - Schizophrenia, unspecified
[2017-02-17] MEDS: ALIVE MULTIVITAMIN PO SCH (15:05)
[2017-02-18 06:42] VITALS: Ht 172.7 cm; Wt 101.1 kg
[2017-02-18 06:47] VITALS: BP_SYST 119; BP_SYST 126; BP_DIAS 60; BP_DIAS 81; PULSE 61; TEMP 36.8
[2017-02-18] MEDS ORDERED: [UNRECOGNIZED DRUG - OTHER] PO SCH (09:00)
[2017-02-18] MEDS: ALIVE MULTIVITAMIN PO SCH (09:00)
[2017-02-18 09:05] LABS: CHOLESTEROL/HDL RATIO 2.8
[2017-02-18] MEDS: ARIPIprazole TAB 15 MG TAB PO SCH (10:26)
[2017-02-18] MEDS ORDERED: BENZTROPINE MESYLATE 0.5 MG TAB PO PRN (11:00)
[2017-02-18] MEDS ORDERED: HALOPERIDOL 5 MG TAB PO PRN (11:00)
--- NOTE | 2017-02-18 11:41 | Psychiatric Progress Notes ---
Progress Note Date of Service Feb 18, 2017. Interval History The patient was admitted from the emergency department on 02/15/2017 due to increased confusion, respiratory believes, disorganized thinking and thought blocking. She reports that she responded favorably to aripiprazole in the past and it was restarted here. Chief Complaint "I don't understand why you wanted to meet with me". Subjective Patient was seen & assessed interval progress reviewed with Nursing. She had a meeting with her mother yesterday. She has exhibited ongoing paranoia and thought blocking. She eats alone and is guarded in conversation. Review of Systems Psych: denies symptoms other than stated above Constitutional: tired Cardiovascular: denied GI: denied Neurologic: denied Remainder of 10 body systems also reviewed and denied other than noted above. Sleep Information Total Hours of Sleep: 6.25 Meal Information Percent of Breakfast Consumed: 0 Percent of Lunch Consumed: 50 Percent of Dinner Consumed: 75 Mental Status Exam During interview pt is: guarded Appearance: disheveled Eye contact is: poor Motor behavior is: steady gait & station, psychomotor retardation Speech: other (delay in response) Affect: blunted (although she smiles appropriate, and laughs appropriately on a couple occasions during our session.), anxious Mood is: other (cannot describe) Thought process: blocking (, disorganized) Thought content: paranoid Suicidal thought are: denied Homicidal thoughts are: denied Hallucinations: other (appears to be responding to internal stimuli) Cognition: language grossly intact Intelligence estimated to be: average Insight: impaired Judgement: impaired Impression This 31-year-old woman presents with a known history of schizophrenia. Her most remarkable symptoms remains disorganized thinking disorganized thinking, and and thought blocking. She does continue to appear to possibly be responding to internal stimuli, although she states this is not occurring. Abilify is titrating. Plan (1) Schizophrenia 02/17 -- The patient's thought processes appear to have tightened. Her associations are significantly less loose today, and although she continues to experience thought blocking, these instances are significantly less frequent. I suspect that she is experiencing auditory hallucinations, as evidenced by the fact that she often appears to be responding to, and distracted by internal stimuli. However, the patient reports that this is not the case. Information provided by the patient's criminal justice social worker suggests that the patient's mother, while very supportive, may be minimizing the patient's behaviors and conditions , so that the symptoms currently in evidence may have been present for longer period of time that originally described. Today, we are increasing the dose of aripiprazole from 10 mg daily to 15 mg daily. She continues to have some difficulty sleeping, but she slept 6-1/2 hours last night. The patient reports that this was true, but that she felt like her sleep was "fitful." She does not wish to be prescribed a hypnotic medication at this time. 02/18--marine consultant provider, my first interaction with patient, she is very disorganized and was paranoid about staff going through her things. Will hold any additional Abilify titration as some sedation. Encouraged use of prn Haldol and Ativan. Fasting lipid profile and glucose reviewed. (2) Mood disorder The patient's primary diagnosis is schizophrenia. We do not have sufficient clinical data to diagnosis schizoaffective disorder at this time. It would appear that the patient is currently experiencing an exacerbation of schizophrenia, but she also presents with certain features that are consistent with depression, including decreased food consumption, insomnia, neglect of self -care, and tearfulness. 02/17 -- the patient reports that her mood is "better" and she says that today her mood is "okay." She continues to look blunted, but she is smiling appropriately more frequently, and on several occasions laughed appropriately. She notes that her anxiety has also diminished. Discharge / Aftercare Planning Primary Care Physician: Name: [facility] Phone Number: [phone] Appointment Notes: as needed Psychiatrist: Name: Ritika Watkins Date of Appointment: Mar 29, 2017 Time of Appointment: 930 Therapist: Name: gypsy Finance Intern: Name: gypsy Visit Code E&M Code: 72206 Inventory Assets Strengths: Supportive family. Help-seeking. Cooperative. History of positive relationship with outpatient provider. Reported good response to medications in the past. Needs: The patient states currently he appears to be experiencing psychotic features, including persecutory delusions and (although she was unwilling to elaborate during the interview, and this conclusion is drawn from information provided by the patient's mother), apparent auditory hallucinations, thought blocking, and disorganized thinking with some loosening of associations. Risk Factors Assessment : Yes /single/: Yes Higher / Fall in social status: No Health problems: No Mental Health Diagnoses: Yes Substance use disorders: No Previous attempt: No Previous attempt;highly lethal: No Previous attempt; planned: No Previous attempt; didn't tell: No Family history of suicide: Yes Previous psychiatric stay: Yes Hopelessness: No Smoker: No Protective Factors Assessment Protestant beliefs: Yes : No Responsible for young children: No Employed: No Stable relationships: Yes Supportive family: Yes Good rapport with provider: Yes Absence of risk factors above: No Data Vital Signs Last 24 Hrs: Date Time Temp Pulse Resp B/P (MAP) Pulse Ox O2 Delivery O2 Flow Rate FiO2 02/18/17 06:47 36.8 61 18 119/81 126/60 Meds Administered Last 24 Hrs: Meds Administered (Past 24Hrs) Medications (Trade) Dose Ordered Sig/Areli Route Start Time Stop Time Status Last Admin Dose Admin Aripiprazole (Abilify Tab) 5 mg HS ONCE PO 02/16/17 22:00 02/16/17 22:01 DC 02/16/17 21:28 5 MG Aripiprazole (Abilify Tab) 10 mg QAM PO 02/17/17 09:00 02/17/17 12:02 DC 02/17/17 10:33 10 MG Aripiprazole (Abilify Tab) 15 mg QAM PO 02/18/17 09:00 03/20/17 08:59 02/18/17 10:26 15 MG Non-Formulary Medication (Non-Formulary Patient'S Own Med) 1 ea DAILY PO 02/18/17 09:00 03/20/17 08:59 02/18/17 09:00 1 EA Lab Results Last 24 Hrs: Last 24 Hours Test 02/18/17 08:09 Fasting Glucose 90 mg/dl Triglycerides Level 67 mg/dl Cholesterol Level 122 mg/dl HDL Cholesterol 43 mg/dl LDL Cholesterol, Calculated 66 mg/dl VLDL Cholesterol, Calculated 13 mg/dl Cholesterol/HDL Ratio 2.8 Problem Qualifiers (1) Schizophrenia: Schizophrenia type: unspecified Qualified Codes: F20.9 - Schizophrenia, unspecified
--- NOTE | 2017-02-18 15:18 | Psychiatric Progress Notes ---
Psychiatric Progress Note Date of Service Feb 18, 2017. Notes continues to express worsening paranoia following discharge of her roommate and [facility] is now recommended as appears decompensated compared to yesterday and unable to tolerate even minor social interaction with staff. [facility] due to severity of psychosis.
[2017-02-19 06:52] VITALS: BP_SYST 116; BP_SYST 129; BP_DIAS 79; BP_DIAS 85; PULSE 65; TEMP 36.8
[2017-02-19] MEDS: ALIVE MULTIVITAMIN PO SCH (08:38)
[2017-02-19] MEDS: ARIPIprazole TAB 15 MG TAB PO SCH (08:38)
--- NOTE | 2017-02-19 10:10 | Psychiatric Progress Notes ---
Progress Note Date of Service Feb 19, 2017. Interval History The patient was admitted from the emergency department on 02/15/2017 due to increased confusion, respiratory believes, disorganized thinking and thought blocking. She reports that she responded favorably to aripiprazole in the past and it was restarted here. Chief Complaint "I'm trying to get my thoughts together". Subjective Patient was seen & assessed interval progress reviewed with Nursing. Remains paranoid/reclusive to room, won't eat with copatients. Wears hoodie to cover face. Today I was able to see multiple circular bruises on her arms/forearms and legs. Although not documented in ED physical they were clearly listed on catering administrative assistant assessment. She continues to report they were from moving "machinery" around her house (couldn't think of word treadmill). Review of Systems Psych: denies symptoms other than stated above Constitutional: denied Cardiovascular: denied GI: denied Neurologic: denied Remainder of 10 body systems also reviewed and denied other than noted above. Sleep Information Total Hours of Sleep: 7.75 Meal Information Percent of Breakfast Consumed: 85 Percent of Lunch Consumed: 50 Percent of Dinner Consumed: 90 Mental Status Exam During interview pt is: guarded Appearance: disheveled Eye contact is: poor Motor behavior is: steady gait & station Speech: other (delay in response) Affect: blunted (although she smiles appropriate, and laughs appropriately on a couple occasions during our session.), anxious Mood is: other (cannot describe) Thought process: blocking Thought content: paranoid Suicidal thought are: denied Homicidal thoughts are: denied Hallucinations: other (did not appear to be responding to internal stimuli) Cognition: language grossly intact Intelligence estimated to be: average Insight: impaired Judgement: impaired Impression This 31-year-old woman presents with a known history of schizophrenia. Her most remarkable symptoms remains disorganized thinking disorganized thinking, and and thought blocking. She does continue to appear to possibly be responding to internal stimuli at times, although she states this is not occurring. Abilify is titrating. She remains on [facility]PR for psychosis. Plan (1) Schizophrenia 02/17 -- The patient's thought processes appear to have tightened. Her associations are significantly less loose today, and although she continues to experience thought blocking, these instances are significantly less frequent. I suspect that she is experiencing auditory hallucinations, as evidenced by the fact that she often appears to be responding to, and distracted by internal stimuli. However, the patient reports that this is not the case. Information provided by the patient's social science teacher suggests that the patient's mother, while very supportive, may be minimizing the patient's behaviors and conditions , so that the symptoms currently in evidence may have been present for longer period of time that originally described. Today, we are increasing the dose of aripiprazole from 10 mg daily to 15 mg daily. She continues to have some difficulty sleeping, but she slept 6-1/2 hours last night. The patient reports that this was true, but that she felt like her sleep was "fitful." She does not wish to be prescribed a hypnotic medication at this time. 02/18--crisis intervention specialist provider, my first interaction with patient, she is very disorganized and was paranoid about staff going through her things. Will hold any additional Abilify titration as some sedation. Encouraged use of prn Haldol and Ativan. Fasting lipid profile and glucose reviewed. (2) Mood disorder The patient's primary diagnosis is schizophrenia. We do not have sufficient clinical data to diagnosis schizoaffective disorder at this time. It would appear that the patient is currently experiencing an exacerbation of schizophrenia, but she also presents with certain features that are consistent with depression, including decreased food consumption, insomnia, neglect of self -care, and tearfulness. 02/17 -- the patient reports that her mood is "better" and she says that today her mood is "okay." She continues to look blunted, but she is smiling appropriately more frequently, and on several occasions laughed appropriately. She notes that her anxiety has also diminished. Discharge / Aftercare Planning Primary Care Physician: Name: [facility] Phone Number: [phone] Appointment Notes: as needed Psychiatrist: Name: Ritika Watkins Date of Appointment: Mar 29, 2017 Time of Appointment: 930 Therapist: Name: gypsy Animal Researcher: Name: gypsy Visit Code E&M Code: 20999 Inventory Assets Strengths: Supportive family. Help-seeking. Cooperative. History of positive relationship with outpatient provider. Reported good response to medications in the past. Needs: The patient states currently he appears to be experiencing psychotic features, including persecutory delusions and (although she was unwilling to elaborate during the interview, and this conclusion is drawn from information provided by the patient's mother), apparent auditory hallucinations, thought blocking, and disorganized thinking with some loosening of associations. Risk Factors Assessment : Yes /single/: Yes Higher / Fall in social status: No Health problems: No Mental Health Diagnoses: Yes Substance use disorders: No Previous attempt: No Previous attempt;highly lethal: No Previous attempt; planned: No Previous attempt; didn't tell: No Family history of suicide: Yes Previous psychiatric stay: Yes Hopelessness: No Smoker: No Protective Factors Assessment Scientologist beliefs: Yes : No Responsible for young children: No Employed: No Stable relationships: Yes Supportive family: Yes Good rapport with provider: Yes Absence of risk factors above: No Data Vital Signs Last 24 Hrs: Date Time Temp Pulse Resp B/P (MAP) Pulse Ox O2 Delivery O2 Flow Rate FiO2 02/19/17 06:52 36.8 65 16 116/79 129/85 Meds Administered Last 24 Hrs: Meds Administered (Past 24Hrs) Medications (Trade) Dose Ordered Sig/Areli Route Start Time Stop Time Status Last Admin Dose Admin Aripiprazole (Abilify Tab) 15 mg QAM PO 02/18/17 09:00 03/20/17 08:59 02/19/17 08:38 15 MG Non-Formulary Medication (Non-Formulary Patient'S Own Med) 1 ea DAILY PO 02/18/17 09:00 03/20/17 08:59 02/19/17 08:38 1 EA Problem Qualifiers (1) Schizophrenia: Schizophrenia type: unspecified Qualified Codes: F20.9 - Schizophrenia, unspecified
[2017-02-20 06:38] VITALS: BP_SYST 135; BP_SYST 138; BP_DIAS 77; BP_DIAS 80; PULSE 92; PULSE 94; PULSE 97; TEMP 37.1
[2017-02-20] MEDS: ALIVE MULTIVITAMIN PO SCH (09:12)
[2017-02-20] MEDS: ARIPIprazole TAB 15 MG TAB PO SCH (09:12)
[2017-02-20] MEDS ORDERED: ARIPIprazole TAB 5 MG TAB PO PRN (09:45)
--- NOTE | 2017-02-20 10:13 | Psychiatric Progress Notes ---
Progress Note Date of Service Feb 20, 2017. Interval History The patient was admitted from the emergency department on 02/15/2017 due to increased confusion, disorganized thinking and thought blocking. She reports that she responded favorably to aripiprazole in the past and it was restarted here. Chief Complaint "I'm basically here to get back on the Abilify". Subjective Patient was seen & assessed interval progress reviewed with Treatment Team. Staff report she is refusing all groups, isolating in her room, and is very guarded with staff. She has made odd requests, such as asking for a vacuum to clean the unit, and wipes to clean her bathroom. She is thought blocked and avoids interactions with others, eating alone in her room. She wears her marinelli up and refuses staff's offers of prn medications for anxiety and psychosis. She was seen today with Vivian Garcia, MS4. She was very guarded and at times refused to answer questions. She says she was "running" last night, because "I' m not used to sitting all the time, you guys have the space..." She reports restlessness and demonstrate severe disorganization of her thought process. She says her mood is "good," but "it's iker odd to be stuck in a situation..." She often struggles to answer questions, and does not complete her sentences or her thoughts. She admits she is not participating in any of the groups are programming here, and will not say why. She cannot explain how she is filling her time here in the hospital, and even after an extended period spent trying to determine why she sought treatment felt she needed to go back on Abilify, she remains unable or unwilling to answer that line of questioning. She does state that she thinks the Abilify helps her, but cannot or will not say how. At one point she states that "it may be too high a dosage," saying that "the fact that I'm having trouble explaining things and being extremely tired" means she needs a lower dose. She wants her dose to be decreased back to 5 mg, but we discussed instead decreasing to 10 mg and moving it to bedtime. She reports good appetite and sleep, and per staff has been sleeping 6-7 hours the past several nights. She denies hallucinations, although she is very distractible and appears to be responding to internal stimuli, with eyes darting around the room, and frequently asking for questions to be repeated that she doesn't remember them. At one point she thought out eighth calendar, and was staring at it, stating that she was "trying to remember the schedule that I have," and then said that she needs to be discharged by Monday, but could not say why. Sleep Information Total Hours of Sleep: 6.00 Meal Information Percent of Breakfast Consumed: 100 Percent of Lunch Consumed: 100 Percent of Dinner Consumed: 100 Mental Status Exam During interview pt is: alert and oriented (to time and place), uncooperative, guarded Appearance: disheveled, other (Overweight, long hair, dressed all black with a marinelli up.) Eye contact is: poor, other (eyes darting around the room) Motor behavior is: steady gait & station, psychomotor agitation (restless, shifting around in bed, at times moving her belongings around purposelessly) Speech: other (minimal speech, slowed, significant delays in response, refusing to answer some questions) Affect: blunted, irritable, anxious, other (incongruent with stated mood) Mood is: other ("good") Thought process: blocking, other (paucity of thought content, often answering vaguely or with only a few words, sometimes not answering at all) Thought content: paranoid Suicidal thought are: denied Homicidal thoughts are: denied Hallucinations: other (denies hallucinations, but appears to be responding to internal stimuli, with eyes darting around the room, and easily distracted) Cognition: language grossly intact Intelligence estimated to be: consistent with level of education Insight: impaired Judgement: impaired Impression 31-year-old female with a history of schizophrenia who presents after dropping out of treatment several years ago, wanting to go back on antipsychotic medication. She presents with extremely disorganized thinking and thought blocking. She appears to be responding to internal stimuli at times, although she states this is not occurring. Abilify is titrating, and she will need outpatient follow-up as she has no current providers. She remains on [facility] for psychosis. Plan (1) Schizophrenia 02/17 -- The patient's thought processes appear to have tightened. Her associations are significantly less loose today, and although she continues to experience thought blocking, these instances are significantly less frequent. I suspect that she is experiencing auditory hallucinations, as evidenced by the fact that she often appears to be responding to, and distracted by internal stimuli. However, the patient reports that this is not the case. Information provided by the patient's social services manager suggests that the patient's mother, while very supportive, may be minimizing the patient's behaviors and conditions , so that the symptoms currently in evidence may have been present for longer period of time that originally described. Today, we are increasing the dose of aripiprazole from 10 mg daily to 15 mg daily. She continues to have some difficulty sleeping, but she slept 6-1/2 hours last night. The patient reports that this was true, but that she felt like her sleep was "fitful." She does not wish to be prescribed a hypnotic medication at this time. 02/18--carton packaging machine operator provider, my first interaction with patient, she is very disorganized and was paranoid about staff going through her things. Will hold any additional Abilify titration as some sedation. Encouraged use of prn Haldol and Ativan. Fasting lipid profile and glucose reviewed and are within normal limits. 02/20 -- patient remained extremely disorganized to the point that she is unable to answer even basic questions with unrelated information. She is requesting that her Abilify dose be decreased drastically, and compromised with a decreased from 15 mg daily to 10 mg daily, and will also move it to bedtime and she reports sedation. She continues to refuse when necessary medications, and refuses to participate in any groups or unit programming. She is also refusing referrals for therapy or case management as an outpatient, and although she has an outpatient psychiatric appointment scheduled, it is not until March 29. We reviewed criteria for discharge, including a demonstrated ability to interpret reality and communicate with others, a good outpatient plan and adequate supports at home, and strongly encouraged her to start attending unit programming and to work on some of these goals, and to consider engaging with outpatient therapy and case management due to the chronic nature of her condition. Family meeting was already held with her mother, and patient will return to live with her in [place] at discharge. (2) Mood disorder The patient's primary diagnosis is schizophrenia. We do not have sufficient clinical data to diagnosis schizoaffective disorder at this time. It would appear that the patient is currently experiencing an exacerbation of schizophrenia, but she also presents with certain features that are consistent with depression, including decreased food consumption, insomnia, neglect of self -care, and tearfulness. 02/17 -- the patient reports that her mood is "better" and she says that today her mood is "okay." She continues to look blunted, but she is smiling appropriately more frequently, and on several occasions laughed appropriately. She notes that her anxiety has also diminished. 02/20 -- patient continues to deny mood symptoms, although she appears anxious and withdrawn. We will continue to monitor. Discharge / Aftercare Planning Primary Care Physician: Name: [facility] Phone Number: [phone] Appointment Notes: as needed Psychiatrist: Name: Ritika Watkins Date of Appointment: Mar 29, 2017 Time of Appointment: 930 Therapist: Name: gypsy Diesel Locomotive Engineer: Name: gypsy Visit Code E&M Code: 33229 Inventory Assets Strengths: Supportive family. Help-seeking. Cooperative. History of positive relationship with outpatient provider. Reported good response to medications in the past. Needs: The patient states currently he appears to be experiencing psychotic features, including persecutory delusions and (although she was unwilling to elaborate during the interview, and this conclusion is drawn from information provided by the patient's mother), apparent auditory hallucinations, thought blocking, and disorganized thinking with some loosening of associations. Risk Factors Assessment : Yes /single/: Yes Higher / Fall in social status: No Access to guns: No Health problems: No Mental Health Diagnoses: Yes Substance use disorders: No Previous attempt: No Previous attempt;highly lethal: No Previous attempt; planned: No Previous attempt; didn't tell: No Family history of suicide: Yes Previous psychiatric stay: Yes Hopelessness: No Smoker: No Protective Factors Assessment Jew beliefs: Yes : No Responsible for young children: No Employed: No Stable relationships: Yes Supportive family: Yes Good rapport with provider: Yes Absence of risk factors above: No Data Vital Signs Last 24 Hrs: Date Time Temp Pulse Resp B/P (MAP) Pulse Ox O2 Delivery O2 Flow Rate FiO2 02/20/17 06:38 37.1 79 16 138/77 97 135/80 Problem Qualifiers (1) Schizophrenia: Schizophrenia type: unspecified Qualified Codes: F20.9 - Schizophrenia, unspecified
--- NOTE | 2017-02-20 10:16 | Medical Student: BHU Only ---
Psychiatric Progress Note CC: "My Abilify is too high. I need it at 5." SUBJECTIVE: The patient was seen and assessed today, and progress was reviewed with nursing. The patient reports doing "fine". Sleep was "fitful"; noted to be for 6.25 hours by staff. She continues to have significant difficulty with interviews, demonstrating some mix of thought blocking/disorganized thought. She feels that her Abilify dose is too high, but struggles to verbalize why this is. She does note that she thinks it is making her sleepy and is making it hard for her to speak. At time of interview, she is focused on leaving on February 22, but is unable to demonstrate why this is. Furthermore, she is not able to describe why she came to the hospital in the first place, and how she has improved at all. She pauses significantly when asked to describe her illness, and continues to repeat "I already told you." Though she denies hallucinations, she is distracted during interview and displays agitated eye movement around the room. Per staff, she was increasingly withdrawn over the weekend, and has been taking all meals in her room. She has not participated in groups at all. When told that this is an important component of her treatment, she is not able to say why she doesn't attend, but does continue to make comments regarding ' her schedule.' She was not able to explain to us what her schedule encompasses. ROS: Patient denies poor appetite. She denies depression, SI/HI. Denies auditory/ visual hallucinations. MSE: Appearance is that of a neatly groomed, casually dressed female with marinelli over her head. She appears of her stated age. The patient struggles to cooperate with interview. Eye contact is poor, with frequent darting eye movements around room. Motor behavior is normal. Speech: Normal volume and tone, with rate switching from normal to halted. Affect: Blunted. Mood: "Fine". Thought process: Her thoughts are distractible, difficult to determine if thought blocked vs. disorganized vs. mixture of both. Thought content: Tendency towards fixation on her medication and date of discharge. Unable to answer most questions directly. Appears preoccupied, withdrawn, likely responding to internal stimuli. Perception: Denies hallucinations but appears to be responding to internal stimuli. Cognition: Fund of knowledge appears appropriate for level of education. Insight is estimated to be poor. Judgment is estimated to be poor. ASSESSMENT: This is a 31 y/o female with presentation consistent with episode of schizophrenia, possibly paranoid type. She is also withdrawn, with some signs suggestive of depressive symptoms. Interviews are difficult as she is significantly thought blocked and unable to vocalize her perception of her illness or treatment trajectory. She is increasingly fixated on leaving the unit on February 22, but is unable to identify how her illness has changed or improved. It is also difficult to assess if there are other components to her illness, such as schizoaffective or underlying personality disorder at this time. She continues to isolate herself in her room and does not participate in group activities. Other than meeting with her mother, who seems to be enabling condition, she has had limited interaction with others. PLAN: 1. Schizophrenia F20 a. Reduce Abilify from 15 to 10 mg. Begin taking at nighttime instead of morning to see if this impacts daytime sleepiness. b. Encourage group participation. c. Haldol and Ativan prn are prescribed, she has not taken any yet as of this time. d. Fasting lipid profile and glucose have been reviewed.
[2017-02-21 07:08] VITALS: BP_SYST 112; BP_SYST 119; BP_DIAS 70; BP_DIAS 77; PULSE 58; PULSE 74; TEMP 36.8
[2017-02-21] MEDS: ALIVE MULTIVITAMIN PO SCH (07:58)
--- NOTE | 2017-02-21 09:50 | Psychiatric Progress Notes ---
Progress Note Date of Service Feb 21, 2017. Interval History The patient was admitted from the emergency department on 02/15/2017 due to increased confusion, disorganized thinking and thought blocking. She reports that she responded favorably to aripiprazole in the past and it was restarted here. Chief Complaint "I'm just here for the Heath.". Subjective Patient was seen & assessed interval progress reviewed with Treatment Team. The patient was cleaning in her bathroom when retrieved for the interview. She was initially pleasant and conversant, but during the interview became thought blocked and distracted. It was difficult for her to answer questions, spending much of her time saying "umm" or "you know", but never answering. She was distracted by her thoughts, losing track of the questions, "What was your question again?". When asked about attending groups, she said that she was "only here for the Heath" and thanked me for the offer of groups. Staff report that she has not attended any groups, but yesterday was able to eat her meals out of her room, which is an improvement. She says that she is not hallucinating, despite her eyes darting around the room as she thinks. She denies feeling paranoid or unsafe. When asked if she had visitors last night she asked "Why do you want to know that?" as if paranoid. She reports good appetite and sleep. Review of Systems Constitutional: + problem reported (isolative) ENT: No hearing loss, No unusual epistaxis, No nasal symptoms, No sore throat, No tinnitus, No dental problems, No trouble swallowing, No problem reported Respiratory: No cough, No sputum, No wheezing, No shortness of breath, No dyspnea on exertion, No dyspnea at rest, No hemoptysis, No problem reported Cardiovascular: No chest pain, No orthopnea, No PND, No edema, No claudication , No palpitations, No problem reported Abdomen: No pain, No nausea, No vomiting, No diarrhea, No constipation, No GI bleeding, No problem reported Musculoskeletal: No joint pain, No muscle pain, No swelling, No calf pain, No problem reported Neurologic: No memory loss, No paralysis, No weakness, No numbness/tingling, No vertigo, No balance problems, No problem reported Psychiatric: + problem reported (difficulty expressing herself) Integumentary: No rash, No itch, No new/changing skin lesions, No color change , No bleeding, No problem reported Sleep Information Total Hours of Sleep: 6.50 Meal Information Percent of Breakfast Consumed: 100 Percent of Lunch Consumed: 50 Percent of Dinner Consumed: 20 Mental Status Exam During interview pt is: alert and oriented (to time and place), guarded Appearance: other (Overweight, long hair, dressed all black with a marinelli up.) Eye contact is: poor, other (eyes darting around the room) Motor behavior is: steady gait & station, no abnormal motor movements Speech: other (minimal speech, slowed, significant delays in response) Affect: blunted, anxious, other (incongruent with stated mood) Mood is: other ("good") Thought process: blocking, other (paucity of thought content, often answering vaguely or with only a few words, sometimes not answering at all) Thought content: paranoid Suicidal thought are: denied Homicidal thoughts are: denied Hallucinations: other (denies hallucinations, but appears to be responding to internal stimuli, with eyes darting around the room, and easily distracted) Cognition: language grossly intact Intelligence estimated to be: consistent with level of education Insight: impaired Judgement: impaired Impression The patient is being retitrated on Abilify, but remains isolative, distracted and thought blocked. She is not attending groups and has no intention to, seeing that she is just here for the meds. Will increase Abilify to include AM dose of 2.5 mg. Plan (1) Schizophrenia 02/17 -- The patient's thought processes appear to have tightened. Her associations are significantly less loose today, and although she continues to experience thought blocking, these instances are significantly less frequent. I suspect that she is experiencing auditory hallucinations, as evidenced by the fact that she often appears to be responding to, and distracted by internal stimuli. However, the patient reports that this is not the case. Information provided by the patient's director social service suggests that the patient's mother, while very supportive, may be minimizing the patient's behaviors and conditions , so that the symptoms currently in evidence may have been present for longer period of time that originally described. Today, we are increasing the dose of aripiprazole from 10 mg daily to 15 mg daily. She continues to have some difficulty sleeping, but she slept 6-1/2 hours last night. The patient reports that this was true, but that she felt like her sleep was "fitful." She does not wish to be prescribed a hypnotic medication at this time. 02/18--vocational instructor provider, my first interaction with patient, she is very disorganized and was paranoid about staff going through her things. Will hold any additional Abilify titration as some sedation. Encouraged use of prn Haldol and Ativan. Fasting lipid profile and glucose reviewed and are within normal limits. 02/20 -- patient remained extremely disorganized to the point that she is unable to answer even basic questions with unrelated information. She is requesting that her Abilify dose be decreased drastically, and compromised with a decreased from 15 mg daily to 10 mg daily, and will also move it to bedtime and she reports sedation. She continues to refuse when necessary medications, and refuses to participate in any groups or unit programming. She is also refusing referrals for therapy or case management as an outpatient, and although she has an outpatient psychiatric appointment scheduled, it is not until March 29. We reviewed criteria for discharge, including a demonstrated ability to interpret reality and communicate with others, a good outpatient plan and adequate supports at home, and strongly encouraged her to start attending unit programming and to work on some of these goals, and to consider engaging with outpatient therapy and case management due to the chronic nature of her condition. Family meeting was already held with her mother, and patient will return to live with her in [place] at discharge. 02/21 - Increase Abilify to 2.5 mg. AM and 10 mg. HS. (2) Mood disorder The patient's primary diagnosis is schizophrenia. We do not have sufficient clinical data to diagnosis schizoaffective disorder at this time. It would appear that the patient is currently experiencing an exacerbation of schizophrenia, but she also presents with certain features that are consistent with depression, including decreased food consumption, insomnia, neglect of self -care, and tearfulness. 02/17 -- the patient reports that her mood is "better" and she says that today her mood is "okay." She continues to look blunted, but she is smiling appropriately more frequently, and on several occasions laughed appropriately. She notes that her anxiety has also diminished. 02/20 -- patient continues to deny mood symptoms, although she appears anxious and withdrawn. We will continue to monitor. Discharge / Aftercare Planning Primary Care Physician: Name: [facility] Phone Number: [phone] Appointment Notes: as needed Psychiatrist: Name: Ritika Watkins Date of Appointment: Mar 29, 2017 Time of Appointment: 930 Therapist: Name: gypsy Airfield Manager: Name: gypsy Visit Code E&M Code: 68193 Inventory Assets Strengths: Supportive family. Help-seeking. Cooperative. History of positive relationship with outpatient provider. Reported good response to medications in the past. Needs: The patient states currently he appears to be experiencing psychotic features, including persecutory delusions and (although she was unwilling to elaborate during the interview, and this conclusion is drawn from information provided by the patient's mother), apparent auditory hallucinations, thought blocking, and disorganized thinking with some loosening of associations. Risk Factors Assessment : Yes /single/: Yes Higher / Fall in social status: No Access to guns: No Health problems: No Mental Health Diagnoses: Yes Substance use disorders: No Previous attempt: No Previous attempt;highly lethal: No Previous attempt; planned: No Previous attempt; didn't tell: No Family history of suicide: Yes Previous psychiatric stay: Yes Hopelessness: No Smoker: No Protective Factors Assessment Jew beliefs: Yes : No Responsible for young children: No Employed: No Stable relationships: Yes Supportive family: Yes Good rapport with provider: Yes Absence of risk factors above: No Data Vital Signs Last 24 Hrs: Date Time Temp Pulse Resp B/P (MAP) Pulse Ox O2 Delivery O2 Flow Rate FiO2 02/21/17 07:08 36.8 58 16 112/70 74 119/77 Meds Administered Last 24 Hrs: Current Inpatient Medications Medications (Trade) Dose Ordered Sig/Areli Route Start Time Stop Time Status Last Admin Dose Admin Acetaminophen (Tylenol Tab) 650 mg Q4H PRN PO 02/15/17 18:00 03/17/17 17:59 Bismuth Subsalicylate (Kaopectate Liqd) 15 ml PRN PRN PO 02/15/17 18:00 03/17/17 17:59 Al Hydroxide/Mg Hydroxide (Maalox Susp) 30 ml Q4H PRN PO 02/15/17 18:00 03/17/17 17:59 Magnesium Hydroxide (Milk Of Magnesia Susp) 30 ml DAILY PRN PO 02/15/17 18:00 03/17/17 17:59 Sodium Chloride ([place] Nasal Crum [place]) PRN PRN NA 02/15/17 18:00 03/17/17 17:59 Hydroxyzine HCl (Vistaril Tab) 50 mg HSZ PRN PO 02/15/17 18:00 03/17/17 17:59 Hydroxyzine HCl (Vistaril Tab) 25 mg Q4H PRN PO 02/15/17 18:00 03/17/17 17:59 Lorazepam (Ativan Tab) 1 mg TID PRN PO 02/15/17 18:00 03/17/17 17:59 Non-Formulary Medication (Non-Formulary Patient'S Own Med) 1 ea DAILY PO 02/18/17 09:00 03/20/17 08:59 02/21/17 07:58 1 EA Haloperidol (Haldol Tab) 5 mg Q6 PRN PO 02/18/17 11:00 03/20/17 10:59 Benztropine Mesylate (Cogentin Tab) 0.5 mg Q6 PRN PO 02/18/17 11:00 03/20/17 10:59 Aripiprazole (Abilify Tab) 10 mg HS PO 02/21/17 22:00 03/23/17 21:59 Aripiprazole (Abilify Tab) 2.5 mg Q6H PRN PO 02/20/17 09:45 03/22/17 09:44 Lab Results Last 24 Hrs: 02/15/17 15:21 Red Blood Count 4.38, Mean Corpuscular Volume 87.2, Mean Corpuscular Hemoglobin 30.8, Mean Corpuscular Hemoglobin Concent 35.3, Mean Platelet Volume 10.1, Neutrophils (%) (Auto) 74.6, Lymphocytes (%) (Auto) 17.4, Monocytes (%) (Auto) 7.6, Eosinophils (%) (Auto) 0.1, Basophils (%) (Auto) 0.2, Neutrophils # (Auto) 7.10, Lymphocytes # (Auto) 1.66, Monocytes # (Auto) 0.72, Eosinophils # (Auto) 0.01, Basophils # (Auto) 0.02 02/15/17 15:21 Test 02/15/17 00:00 02/15/17 15:20 02/15/17 15:21 02/16/17 00:00 Urine Color YELLOW Urine Appearance CLEAR (CLEAR) Urine pH 6.5 (4.5-7.5) Urine Specific [place] 1.028 (1.000-1.030) Urine Protein 1+ (NEG) Urine Glucose (UA) NEG (NEG) Urine Ketones TRACE (NEG) Urine Occult Blood NEG (NEG) Urine Nitrite NEG (NEG) Urine Bilirubin NEG (NEG) Urine Urobilinogen NEG (NEG) Urine Leukocyte Esterase NEG (NEG) Urine WBC (Auto) 1-5 /hpf (0-5) Urine RBC (Auto) 0-4 /hpf (0-4) Urine Hyaline Casts (Auto) 1-5 /lpf (0-5) Urine Epithelial Cells (Auto) 20-30 /lpf (0-5) Urine Bacteria (Auto) NEG (NEG) Urine Crystals CALCIUM OXALATE (NONE Urine Opiates Screen NEG (NEG) Urine Methadone, Qualitative NEG (NEG) Urine Barbiturates NEG (NEG) Urine Phencyclidine (PCP) Level NEG (NEG) Ur Amphetamine/Methamphetamine NEG (NEG) MDMA (Ecstasy) Screen NEG (NEG) Urine Benzodiazepines Screen NEG (NEG) Urine Cocaine Metabolite NEG (NEG) Urine Marijuana (THC) NEG (NEG) Bedside Glucose 90 mg/dl (70-90) White Blood Count 9.52 K/uL (4.8-10.8) Red Blood Count 4.38 M/uL (4.2-5.4) Hemoglobin 13.5 g/dL (12.0-16.0) Hematocrit 38.2 % (37-47) Mean Corpuscular Volume 87.2 fL (80-100) Mean Corpuscular Hemoglobin 30.8 pg (25-34) Mean Corpuscular Hemoglobin Concent 35.3 g/dl (32-36) Platelet Count 282 K/uL (130-400) Mean Platelet Volume 10.1 fL (7.4-10.4) Neutrophils (%) (Auto) 74.6 % Lymphocytes (%) (Auto) 17.4 % Monocytes (%) (Auto) 7.6 % Eosinophils (%) (Auto) 0.1 % Basophils (%) (Auto) 0.2 % Neutrophils # (Auto) 7.10 K/uL (1.4-6.5) Lymphocytes # (Auto) 1.66 K/uL (1.2-3.4) Monocytes # (Auto) 0.72 K/uL (0.11-0.59) Eosinophils # (Auto) 0.01 K/uL (0-0.5) Basophils # (Auto) 0.02 K/uL (0-0.2) RDW Standard Deviation 40.3 fL (36.4-46.3) RDW Coefficient of Variation 12.5 % (11.5-14.5) Immature Granulocyte % (Auto) 0.1 % Immature Granulocyte # (Auto) 0.01 K/uL (0.00-0.02) Anion Gap 9.0 mmol/L (3-11) Estimated GFR () 142.2 Estimated GFR (Non- 122.7 BUN/Creatinine Ratio 23.5 (10-20) Calcium Level 8.8 mg/dl (8.5-10.1) Total Bilirubin 0.4 mg/dl (0.2-1) Direct Bilirubin < 0.1 mg/dl (0-0.2) Aspartate Amino Transf (AST/SGOT) 15 U/L (15-37) Alanine Aminotransferase (ALT/SGPT) 28 U/L (12-78) Alkaline Phosphatase 71 U/L (45-117) Total Protein 7.1 gm/dl (6.4-8.2) Albumin 3.9 gm/dl (3.4-5.0) Thyroid Stimulating Hormone (TSH) 0.686 uIu/ml (0.300-4.500) Ethyl Alcohol mg/dL < 3.0 mg/dl (0-3) Urine Test NEG (NEG) Test 02/18/17 08:09 Fasting Glucose 90 mg/dl (70-99) Triglycerides Level 67 mg/dl (0-150) Cholesterol Level 122 mg/dl (0-200) HDL Cholesterol 43 mg/dl LDL Cholesterol, Calculated 66 mg/dl VLDL Cholesterol, Calculated 13 mg/dl Cholesterol/HDL Ratio 2.8 Problem Qualifiers (1) Schizophrenia: Schizophrenia type: unspecified Qualified Codes: F20.9 - Schizophrenia, unspecified
--- NOTE | 2017-02-21 14:00 | Medical Student: BHU Only ---
Psychiatric Progress Note SUBJECTIVE: The patient was seen and assessed today, and progress was reviewed with nursing. The patient reports doing "good". Sleep was "pretty good"; noted to be for 6.5 hours by staff. She has continued to be isolated and withdrawn, leaving her room only for showers and occasionally for meals. She has not been attending any groups, and feels that they do not fall in line with her 'belief system.' When asked about why she is staying in her room, she said "its not technically my room, and I feel safe in my room, I'm not trying to harm myself. It's not something of concern." She is not interested in ever participating in groups. She is not able to articulate why group therapy/activities are not for her. She does continue to repeat that Abilify is all she needs to get better, and she did not 'want to get into this situation in the first place.' She became increasingly withdrawn throughout the interview. She states that her goal is to 'get out of here as soon as possible.' When asked about goals after leaving the unit, she became more guarded and said she 'would like to keep that to herself' because it was personal. She did not want to explain how Abilify was impacting her and became more paranoid with interview. ROS: She denies SI/HI, she denies hallucinations, delusions. MSE: Appearance is that of a neatly groomed, casually dressed female. The patient is initially cooperative with interview. Eye contact is poor. Motor behavior is normal. Speech: Flat and speaks with apprehension, appropriate volume and rate. Affect: Blunted and withdrawn. Mood: "good". Thought process: Substantial blocking and preservations. Thought content: Though content is withdrawn with elements of paranoia and guarding. Perception: Appears to be responding to internal stimuli. Cognition:Fund of knowledge appropriate. Insight is estimated to be Poor. Judgment is estimated to be poor. ASSESSMENT: This is a 31 y/o female who has been admitted due to symptoms of schizophrenia. She is becoming increasingly guarded and withdrawn on the floor. In my opinion, she seems worse today in comparison with yesterday. She is voicing more distrust towards staff and continues to be fixated on how Abilify is all she needs to get better. She is guarded and continues to have poor eye contact and significant thought blocking. PLAN: 1. Schizophrenia F20 a. Continue Abilify 10 mg at night. b. Encourage group participation. c. Haldol and Ativan prn are prescribed, she has not taken any yet as of this time. d. Fasting lipid profile and glucose have been reviewed. e. Seek earlier outpatient psychiatric follow up appointment. Currently not scheduled to see psychiatrist till end of March.
[2017-02-21] MEDS: ARIPIprazole TAB 10 MG TAB PO SCH (21:42)
[2017-02-22 06:57] VITALS: BP_SYST 113; BP_SYST 123; BP_DIAS 73; BP_DIAS 80; PULSE 60; PULSE 71; TEMP 36.8
[2017-02-22] MEDS: ALIVE MULTIVITAMIN PO SCH (09:00)
[2017-02-22] MEDS: ARIPIprazole TAB 5 MG TAB PO SCH (09:00)
--- NOTE | 2017-02-22 10:30 | Medical Student: BHU Only ---
Psychiatric Progress Note CC: "This environment is not helping." SUBJECTIVE: The patient was seen and assessed today, and progress was reviewed with nursing. The patient reports doing "fine". Sleep was "fine"; noted to be for 7 hours by staff. She is fixated on Abilify at time of interview, continuing to state that the dose is too high and "I just came here for 5 mg, not to be stuck in this situation." She is able to verbalize her symptoms more today, but attributes it to her Abilify. When asked about her diagnosis, she states that "that is private information." She does note that she should not be having as much difficulty explaining herself as she is. She says that it is hard to get her thoughts out. She also notes that the environment of the unit is not helping her. She described it as distracting to focus on herself when there are all these other people working on themselves. She became more tearful and agitated as the interview continued. She continues to state that she doesn't want to tell us things because she doesn't know us, and she only trusts Dr. Vargas. When asked how we could make her more comfortable with us, she entirely shut down and was not able to address the question at all. She kept resorting back to saying "So how can I be discharged on Monday." She thinks she is ready for discharge and will be fine at home. ROS: She denies suicidal ideations, homicidal ideations. She denies visual/auditory hallucinations. MSE: Appearance is that of a neatly groomed, casually dressed female with two hoods over her head. She appears of her stated age. The patient is generally cooperative with the interview. Eye contact is poor, but improved from previous interviews. Motor behavior is normal. Speech: Volume, rate, tone are appropriate. Affect: Blunted. Mood: "Fine". Thought process: Substantial blocking and fixations on Abilify and discharge. Thought content: Obsessions over medication continue to present. She appears paranoid and responding to internal stimuli. Perception: Without depersonalization. Cognition: Fund of knowledge appropriate. Insight is estimated to be poor. Judgment is estimated to be poor. ASSESSMENT: This is a 31 y/o female with schizophrenia, likely paranoid type. She continues to be thought blocked, paranoid, guarded, and isolated. She does not seem to be making much progress on the unit, and is continuing to refuse any form of group interaction. While she continues to fixate on leaving the unit, she does not appear to be capable of maintaining ADL's outside structure of mental health facility at this time. PLAN: 1. Schizophrenia F20 a. Continue Abilify 10 mg at night. Abilify 2.5 mg qAM, as well as 2.5 mg prn for psychosis. b. Encourage group participation. c. Haldol and Ativan prn are prescribed, she has not taken any yet as of this time. d. Fasting lipid profile and glucose have been reviewed. e. Seek earlier outpatient psychiatric follow up appointment. Currently not scheduled to see psychiatrist till end of March.
--- NOTE | 2017-02-22 10:45 | Psychiatric Progress Notes ---
Progress Note Date of Service Feb 22, 2017. Interval History The patient was admitted from the emergency department on 02/15/2017 due to increased confusion, disorganized thinking and thought blocking. She had schizophrenia, and had been off of medications with worsening psychosis. Reports that she responded favorably to aripiprazole in the past and it was restarted here. Chief Complaint "I feel like it's way too high". Subjective Patient was seen & assessed interval progress reviewed with Treatment Team. Staff report she refused all group programming yesterday, except for one group which she attended for about 15 minutes and did not participate in. She is guarded and irritable with staff, was observed cleaning and wiping down public areas on the unit, and spend long periods in her bathroom with the door closed and light off. She requested disinfectant wipes to clean her bed and pillows. She wanted to know if her bed monitors her breathing, and if alarms would go off if she stopped breathing. She was distressed when another patient tried to enter her room several times in a disorganized state. She is refusing to take her morning dose of Abilify. Today she was seen with Vivian Garcia, MS 4. She states that she believes her dose of medication is too high, but had significant difficulty explaining why, even with repeated questioning. She frequently says "Um, uh..." and has significant difficulty answering questions, even when given options to choose from. She admits that she is having difficulty getting her thoughts out, and thinks this is due to her medication, even when reminded that this was one of her symptoms on presentation and is actually with the medication is helping to treat. She also reports feeling tired, which she attributes to the medication. She is very fixated on wanting 5 mg of Abilify, as she thinks she did well on this dose in the past. She says she was "communicating really well" yesterday, but when asked to give an example of this or state who she was communicating with, she cannot answer and becomes increasingly irritated. She refuses to say what her diagnosis is, "that 's private," and refuses to disclose what symptoms she is experiencing, saying she doesn't know was well enough. She insists that she attended groups yesterday, but when asked which group she attended and what it was about, she refuses to answer and becomes increasingly irritable, until she abruptly stood up, went into her room, and slammed the door. Sleep Information Total Hours of Sleep: 7.00 Meal Information Percent of Breakfast Consumed: 100 Percent of Lunch Consumed: 100 Percent of Dinner Consumed: 50 Mental Status Exam During interview pt is: uncooperative (often does not answer questions, appears very irritated with questioning, sighs heavily, and rolls her eyes), guarded Appearance: other (Overweight, long hair, dressed in long pants and 200 shirts , with both hoods up) Eye contact is: poor (refuses to make eye contact, looking away from this provider and at times rolling her eyes) Motor behavior is: steady gait & station, no abnormal motor movements Speech: other (minimal speech, slowed, significant delays in response) Affect: irritable, constricted, other (incongruent with stated mood) Mood is: other ("good") Thought process: blocking, other (paucity of thought content, often answering vaguely or with only a few words, sometimes not answering at all) Thought content: paranoid, delusions (refuses to state why she moved a treadmill out of the home, stating it is "private," but told mother it was because of the devil) Suicidal thought are: denied Homicidal thoughts are: denied Hallucinations: other (denies hallucinations, but appears to be responding to internal stimuli, with eyes darting around the room, and easily distracted) Cognition: language grossly intact Intelligence estimated to be: consistent with level of education, below average Insight: impaired Judgement: impaired Impression The patient is being restarted on Abilify, but remains isolative, distracted and thought blocked. She is not attending groups and has no intention to, stating that she is just here for the meds. She is now refusing to take the recommended dose of antipsychotic medication, wanting to return to a very low, subtherapeutic dose. She remains disorganized and significantly thought blocking and paranoid, poorly engaged in treatment, and unwilling to discuss her symptoms. Plan (1) Schizophrenia 02/17 -- The patient's thought processes appear to have tightened. Her associations are significantly less loose today, and although she continues to experience thought blocking, these instances are significantly less frequent. I suspect that she is experiencing auditory hallucinations, as evidenced by the fact that she often appears to be responding to, and distracted by internal stimuli. However, the patient reports that this is not the case. Information provided by the patient's community mental health social worker suggests that the patient's mother, while very supportive, may be minimizing the patient's behaviors and conditions , so that the symptoms currently in evidence may have been present for longer period of time that originally described. Today, we are increasing the dose of aripiprazole from 10 mg daily to 15 mg daily. She continues to have some difficulty sleeping, but she slept 6-1/2 hours last night. The patient reports that this was true, but that she felt like her sleep was "fitful." She does not wish to be prescribed a hypnotic medication at this time. 02/18--medical transcription provider, my first interaction with patient, she is very disorganized and was paranoid about staff going through her things. Will hold any additional Abilify titration as some sedation. Encouraged use of prn Haldol and Ativan. Fasting lipid profile and glucose reviewed and are within normal limits. 02/20 -- patient remained extremely disorganized to the point that she is unable to answer even basic questions with unrelated information. She is requesting that her Abilify dose be decreased drastically, and compromised with a decreased from 15 mg daily to 10 mg daily, and will also move it to bedtime and she reports sedation. She continues to refuse when necessary medications, and refuses to participate in any groups or unit programming. She is also refusing referrals for therapy or case management as an outpatient, and although she has an outpatient psychiatric appointment scheduled, it is not until March 29. We reviewed criteria for discharge, including a demonstrated ability to interpret reality and communicate with others, a good outpatient plan and adequate supports at home, and strongly encouraged her to start attending unit programming and to work on some of these goals, and to consider engaging with outpatient therapy and case management due to the chronic nature of her condition. Family meeting was already held with her mother, and patient will return to live with her in [place] at discharge. 02/21 - Increase Abilify to 2.5 mg. AM and 10 mg. HS. 02/22 - Patient is refusing to take the higher dose of Abilify, and refusing participation in unit programming. She continues to refuse recommendations for outpatient case management and therapy. She remained psychotic, thought blocked , and paranoid. She has not been aggressive so will discontinue her private room and try placing her with a roommate. (2) Mood disorder The patient's primary diagnosis is schizophrenia. We do not have sufficient clinical data to diagnosis schizoaffective disorder at this time. It would appear that the patient is currently experiencing an exacerbation of schizophrenia, but she also presents with certain features that are consistent with depression, including decreased food consumption, insomnia, neglect of self -care, and tearfulness. 02/17 -- the patient reports that her mood is "better" and she says that today her mood is "okay." She continues to look blunted, but she is smiling appropriately more frequently, and on several occasions laughed appropriately. She notes that her anxiety has also diminished. 02/20 -- patient continues to deny mood symptoms, although she appears anxious and withdrawn. We will continue to monitor. Discharge / Aftercare Planning Primary Care Physician: Name: [facility] Phone Number: [phone] Appointment Notes: as needed Psychiatrist: Name: Ritika Watkins Date of Appointment: Mar 29, 2017 Time of Appointment: 930 Therapist: Name: [facility]psy [employer] Sales Management Assistant: Name: gypsy Visit Code E&M Code: 46396 Inventory Assets Strengths: Supportive family. Help-seeking. Cooperative. History of positive relationship with outpatient provider. Reported good response to medications in the past. Needs: The patient states currently he appears to be experiencing psychotic features, including persecutory delusions and (although she was unwilling to elaborate during the interview, and this conclusion is drawn from information provided by the patient's mother), apparent auditory hallucinations, thought blocking, and disorganized thinking with some loosening of associations. Risk Factors Assessment : Yes /single/: Yes Higher / Fall in social status: No Access to guns: No Health problems: No Mental Health Diagnoses: Yes Substance use disorders: No Previous attempt: No Previous attempt;highly lethal: No Previous attempt; planned: No Previous attempt; didn't tell: No Family history of suicide: Yes Previous psychiatric stay: Yes Hopelessness: No Smoker: No Protective Factors Assessment [employer] beliefs: Yes : No Responsible for young children: No Employed: No Stable relationships: Yes Supportive family: Yes Good rapport with provider: Yes Absence of risk factors above: No Data Vital Signs Last 24 Hrs: Date Time Temp Pulse Resp B/P (MAP) Pulse Ox O2 Delivery O2 Flow Rate FiO2 02/22/17 06:57 36.8 60 16 113/73 71 123/80 Meds Administered Last 24 Hrs: Meds Administered (Past 24Hrs) Medications (Trade) Dose Ordered Sig/Areli Route Start Time Stop Time Status Last Admin Dose Admin Aripiprazole (Abilify Tab) 10 mg HS PO 02/21/17 22:00 03/23/17 21:59 02/21/17 21:42 10 MG Problem Qualifiers (1) Schizophrenia: Schizophrenia type: unspecified Qualified Codes: F20.9 - Schizophrenia, unspecified
[2017-02-22] MEDS: ARIPIprazole TAB 10 MG TAB PO SCH (21:44)
[2017-02-23 06:53] VITALS: BP_SYST 103; BP_SYST 112; BP_DIAS 62; BP_DIAS 74; PULSE 58; PULSE 64; TEMP 36.9
[2017-02-23] MEDS: ARIPIprazole TAB 5 MG TAB PO SCH (09:00)
[2017-02-23] MEDS: ALIVE MULTIVITAMIN PO SCH (09:21)
--- NOTE | 2017-02-23 10:57 | Psychiatric Progress Notes ---
Progress Note Date of Service Feb 23, 2017. Interval History The patient was admitted from the emergency department on 02/15/2017 due to increased confusion, disorganized thinking and thought blocking. She had schizophrenia, and had been off of medications with worsening psychosis. Reports that she responded favorably to aripiprazole in the past and it was restarted here. Chief Complaint "I'd really like to only take 5 mg.". Subjective Patient was seen & assessed interval progress reviewed with Treatment Team. The patient has submitted her 72 hr notice to withdraw from treatment. She feels that she is ready to go and says that being here is making her worse. She only wanted to get back on 5 mg. of Abilify, and does not see the need to attend groups or receive OP services other than seeing a psychiatrist. She specifically denies paranoia, fearful thoughts or concerns for her safety but then goes on to be suspicious of our motives in wanting to talk with her mother , and asks that her mother be invited in and the questions asked in front of her. She continues to demonstrate thought blocking, and severe difficulty expressing herself. She frequently repeats simple phrases and has long delays in answering any question, and appears to get lost in her thoughts. She is easily frustrated. Staff report that she continues to clean a lot, cleaning her bathroom repeatedly, doing laundry and even cleaning the fridge. When asked about this she becomes defensive and points out that maintaining a clean environment is part of our stated treatment. She then talked about the shower, not knowing who has used it, if they had HIV or other communicable diseases. I inquired again about attending no groups and she says that she did attend one activity group several days ago, but repeats her thoughts about not needing groups. She denies SI. Denies aud/vis hallucinations. Review of Systems Constitutional: No fever, No chills, No sweats, No weight loss, No weakness, No fatigue, No problem reported ENT: No hearing loss, No unusual epistaxis, No nasal symptoms, No sore throat, No tinnitus, No dental problems, No trouble swallowing, No problem reported Respiratory: No cough, No sputum, No wheezing, No shortness of breath, No dyspnea on exertion, No dyspnea at rest, No hemoptysis, No problem reported Cardiovascular: No chest pain, No orthopnea, No PND, No edema, No claudication , No palpitations, No problem reported Musculoskeletal: No joint pain, No muscle pain, No swelling, No calf pain, No problem reported Neurologic: No memory loss, No paralysis, No weakness, No numbness/tingling, No vertigo, No balance problems, No problem reported Psychiatric: + problem reported (trouble expressing her thoughts) Integumentary: No rash, No itch, No new/changing skin lesions, No color change , No bleeding, No problem reported Sleep Information Total Hours of Sleep: 6.50 Meal Information Percent of Breakfast Consumed: 100 Percent of Lunch Consumed: 0 Percent of Dinner Consumed: 100 Mental Status Exam During interview pt is: uncooperative (often does not answer questions, appears very irritated with questioning, sighs heavily, and rolls her eyes), guarded Appearance: other (Overweight, long hair, dressed in long pants and with hoodie with marinelli up) Eye contact is: fair, poor (refuses to make eye contact, looking away from this provider and at times rolling her eyes) Motor behavior is: steady gait & station, no abnormal motor movements Speech: other (minimal speech, slowed, significant delays in response) Affect: irritable, constricted, other (incongruent with stated mood) Mood is: irritable Thought process: blocking, other (paucity of thought content, often answering vaguely or with only a few words, sometimes not answering at all) Thought content: paranoid Suicidal thought are: denied Homicidal thoughts are: denied Hallucinations: denies auditory, denies visual Cognition: language grossly intact Intelligence estimated to be: consistent with level of education, below average Insight: impaired Judgement: impaired Impression The patient demonstrates no insight into her condition. She remains defensive about her symptoms, justifying them as normal. She blames the meds for her difficulty expressing herself and will not agrees that those symptoms predating the return to Abilify. She has submitted her 72 hr notice to withdraw from treatment and we will ask mother's opinion about proximity to baseline and concerns with her going home in this condition. She clearly is not stable, and thoughts remain paranoid and distorted, but she refuses to take the recommended AM dose of Abilify and only reluctantly takes the 10 mg. HS. We will continue to gather information toward the need for further inpatient care. Plan (1) Schizophrenia 02/17 -- The patient's thought processes appear to have tightened. Her associations are significantly less loose today, and although she continues to experience thought blocking, these instances are significantly less frequent. I suspect that she is experiencing auditory hallucinations, as evidenced by the fact that she often appears to be responding to, and distracted by internal stimuli. However, the patient reports that this is not the case. Information provided by the patient's social insurance administrator suggests that the patient's mother, while very supportive, may be minimizing the patient's behaviors and conditions , so that the symptoms currently in evidence may have been present for longer period of time that originally described. Today, we are increasing the dose of aripiprazole from 10 mg daily to 15 mg daily. She continues to have some difficulty sleeping, but she slept 6-1/2 hours last night. The patient reports that this was true, but that she felt like her sleep was "fitful." She does not wish to be prescribed a hypnotic medication at this time. 02/18--sales applications engineer provider, my first interaction with patient, she is very disorganized and was paranoid about staff going through her things. Will hold any additional Abilify titration as some sedation. Encouraged use of prn Haldol and Ativan. Fasting lipid profile and glucose reviewed and are within normal limits. 02/20 -- patient remained extremely disorganized to the point that she is unable to answer even basic questions with unrelated information. She is requesting that her Abilify dose be decreased drastically, and compromised with a decreased from 15 mg daily to 10 mg daily, and will also move it to bedtime and she reports sedation. She continues to refuse when necessary medications, and refuses to participate in any groups or unit programming. She is also refusing referrals for therapy or case management as an outpatient, and although she has an outpatient psychiatric appointment scheduled, it is not until March 29. We reviewed criteria for discharge, including a demonstrated ability to interpret reality and communicate with others, a good outpatient plan and adequate supports at home, and strongly encouraged her to start attending unit programming and to work on some of these goals, and to consider engaging with outpatient therapy and case management due to the chronic nature of her condition. Family meeting was already held with her mother, and patient will return to live with her in [place] at discharge. 02/21 - Increase Abilify to 2.5 mg. AM and 10 mg. HS. 02/22 - Patient is refusing to take the higher dose of Abilify, and refusing participation in unit programming. She continues to refuse recommendations for outpatient case management and therapy. She remained psychotic, thought blocked , and paranoid. She has not been aggressive so will discontinue her private room and try placing her with a roommate. 02/23 -Patient refusing to the AM dose of Abilify but will continue to recommend - Obtain info from mother re: patient's condition and opinion about readiness for discharge (2) Mood disorder The patient's primary diagnosis is schizophrenia. We do not have sufficient clinical data to diagnosis schizoaffective disorder at this time. It would appear that the patient is currently experiencing an exacerbation of schizophrenia, but she also presents with certain features that are consistent with depression, including decreased food consumption, insomnia, neglect of self -care, and tearfulness. 02/17 -- the patient reports that her mood is "better" and she says that today her mood is "okay." She continues to look blunted, but she is smiling appropriately more frequently, and on several occasions laughed appropriately. She notes that her anxiety has also diminished. 02/20 -- patient continues to deny mood symptoms, although she appears anxious and withdrawn. We will continue to monitor. Discharge / Aftercare Planning Primary Care Physician: Name: [facility] Phone Number: [phone] Appointment Notes: as needed Psychiatrist: Name: Ritika Watkins Date of Appointment: Mar 29, 2017 Time of Appointment: 930 Therapist: Name: gypsy Laminate Floor Installer: Name: gypsy Visit Code E&M Code: 15396 Inventory Assets Strengths: Supportive family. Help-seeking. Cooperative. History of positive relationship with outpatient provider. Reported good response to medications in the past. Needs: The patient states currently he appears to be experiencing psychotic features, including persecutory delusions and (although she was unwilling to elaborate during the interview, and this conclusion is drawn from information provided by the patient's mother), apparent auditory hallucinations, thought blocking, and disorganized thinking with some loosening of associations. Risk Factors Assessment : Yes /single/: Yes Higher / Fall in social status: No Access to guns: No Health problems: No Mental Health Diagnoses: Yes Substance use disorders: No Previous attempt: No Previous attempt;highly lethal: No Previous attempt; planned: No Previous attempt; didn't tell: No Family history of suicide: Yes Previous psychiatric stay: Yes Hopelessness: No Smoker: No Protective Factors Assessment L[employer] beliefs: Yes : No Responsible for young children: No Employed: No Stable relationships: Yes Supportive family: Yes Good rapport with provider: Yes Absence of risk factors above: No Data Vital Signs Last 24 Hrs: Date Time Temp Pulse Resp B/P (MAP) Pulse Ox O2 Delivery O2 Flow Rate FiO2 02/23/17 06:53 36.9 58 16 103/62 64 112/74 Meds Administered Last 24 Hrs: Meds Administered (Past 24Hrs) Medications (Trade) Dose Ordered Sig/Areli Route Start Time Stop Time Status Last Admin Dose Admin Aripiprazole (Abilify Tab) 10 mg HS PO 02/21/17 22:00 03/23/17 21:59 02/22/17 21:44 10 MG Lab Results Last 24 Hrs: 02/15/17 15:21 Red Blood Count 4.38, Mean Corpuscular Volume 87.2, Mean Corpuscular Hemoglobin 30.8, Mean Corpuscular Hemoglobin Concent 35.3, Mean Platelet Volume 10.1, Neutrophils (%) (Auto) 74.6, Lymphocytes (%) (Auto) 17.4, Monocytes (%) (Auto) 7.6, Eosinophils (%) (Auto) 0.1, Basophils (%) (Auto) 0.2, Neutrophils # (Auto) 7.10, Lymphocytes # (Auto) 1.66, Monocytes # (Auto) 0.72, Eosinophils # (Auto) 0.01, Basophils # (Auto) 0.02 02/15/17 15:21 Test 02/15/17 00:00 02/15/17 15:20 02/15/17 15:21 02/16/17 00:00 Urine Color YELLOW Urine Appearance CLEAR (CLEAR) Urine pH 6.5 (4.5-7.5) Urine Specific [place] 1.028 (1.000-1.030) Urine Protein 1+ (NEG) Urine Glucose (UA) NEG (NEG) Urine Ketones TRACE (NEG) Urine Occult Blood NEG (NEG) Urine Nitrite NEG (NEG) Urine Bilirubin NEG (NEG) Urine Urobilinogen NEG (NEG) Urine Leukocyte Esterase NEG (NEG) Urine WBC (Auto) 1-5 /hpf (0-5) Urine RBC (Auto) 0-4 /hpf (0-4) Urine Hyaline Casts (Auto) 1-5 /lpf (0-5) Urine Epithelial Cells (Auto) 20-30 /lpf (0-5) Urine Bacteria (Auto) NEG (NEG) Urine Crystals CALCIUM OXALATE (NONE Urine Opiates Screen NEG (NEG) Urine Methadone, Qualitative NEG (NEG) Urine Barbiturates NEG (NEG) Urine Phencyclidine (PCP) Level NEG (NEG) Ur Amphetamine/Methamphetamine NEG (NEG) MDMA (Ecstasy) Screen NEG (NEG) Urine Benzodiazepines Screen NEG (NEG) Urine Cocaine Metabolite NEG (NEG) Urine Marijuana (THC) NEG (NEG) Bedside Glucose 90 mg/dl (70-90) White Blood Count 9.52 K/uL (4.8-10.8) Red Blood Count 4.38 M/uL (4.2-5.4) Hemoglobin 13.5 g/dL (12.0-16.0) Hematocrit 38.2 % (37-47) Mean Corpuscular Volume 87.2 fL (80-100) Mean Corpuscular Hemoglobin 30.8 pg (25-34) Mean Corpuscular Hemoglobin Concent 35.3 g/dl (32-36) Platelet Count 282 K/uL (130-400) Mean Platelet Volume 10.1 fL (7.4-10.4) Neutrophils (%) (Auto) 74.6 % Lymphocytes (%) (Auto) 17.4 % Monocytes (%) (Auto) 7.6 % Eosinophils (%) (Auto) 0.1 % Basophils (%) (Auto) 0.2 % Neutrophils # (Auto) 7.10 K/uL (1.4-6.5) Lymphocytes # (Auto) 1.66 K/uL (1.2-3.4) Monocytes # (Auto) 0.72 K/uL (0.11-0.59) Eosinophils # (Auto) 0.01 K/uL (0-0.5) Basophils # (Auto) 0.02 K/uL (0-0.2) RDW Standard Deviation 40.3 fL (36.4-46.3) RDW Coefficient of Variation 12.5 % (11.5-14.5) Immature Granulocyte % (Auto) 0.1 % Immature Granulocyte # (Auto) 0.01 K/uL (0.00-0.02) Anion Gap 9.0 mmol/L (3-11) Estimated GFR () 142.2 Estimated GFR (Non- 122.7 BUN/Creatinine Ratio 23.5 (10-20) Calcium Level 8.8 mg/dl (8.5-10.1) Total Bilirubin 0.4 mg/dl (0.2-1) Direct Bilirubin < 0.1 mg/dl (0-0.2) Aspartate Amino Transf (AST/SGOT) 15 U/L (15-37) Alanine Aminotransferase (ALT/SGPT) 28 U/L (12-78) Alkaline Phosphatase 71 U/L (45-117) Total Protein 7.1 gm/dl (6.4-8.2) Albumin 3.9 gm/dl (3.4-5.0) Thyroid Stimulating Hormone (TSH) 0.686 uIu/ml (0.300-4.500) Ethyl Alcohol mg/dL < 3.0 mg/dl (0-3) Urine Test NEG (NEG) Test 02/18/17 08:09 Fasting Glucose 90 mg/dl (70-99) Triglycerides Level 67 mg/dl (0-150) Cholesterol Level 122 mg/dl (0-200) HDL Cholesterol 43 mg/dl LDL Cholesterol, Calculated 66 mg/dl VLDL Cholesterol, Calculated 13 mg/dl Cholesterol/HDL Ratio 2.8 Problem Qualifiers (1) Schizophrenia: Schizophrenia type: unspecified Qualified Codes: F20.9 - Schizophrenia, unspecified
--- NOTE | 2017-02-23 13:57 | Medical Student: BHU Only ---
Psychiatric Progress Note SUBJECTIVE: The patient was seen and assessed today, and progress was reviewed with nursing. The patient reports doing "pretty good". Sleep was "fine"; noted to be for 6.5 hours by staff. Patient signed a 72 hour notice last evening with her mother to leave treatment. Patient will not disclose any information on how her meeting with her mom went, she just says that her mom is 'supportive.' She cotinues to state that this environment is not good for her and that she needs to leave. She states that 'what is chosen is best for me.' She will not disclose any of her plans for discharge or follow up. She is still not able to articulate why she feels this environment is bad, or how Abilify is helping her. Overall, she is not cooperative with interview and seems more disillusioned by treatment. ROS: Denies SI/HI, denies difficulty sleeping, poor appetite. Denies paranoia, hallucinations, delusions. MSE: Appearance is that of a neatly groomed, casually dressed female with one marinelli over her head. She appears of her stated age. The patient is generally cooperative with the interview. Eye contact continues to be poor. Motor behavior is normal. Speech: Volume, rate, tone are appropriate. Affect: Blunted. Mood: "Good". Thought process: Continues to have thought blocking and fixations on Abilify and discharge. Thought content: Significant hostility towards inpatient treatment, perseverations on leaving and how this environment is not healthy for her. Perception: Without depersonalization. Cognition: Fund of knowledge appropriate. Insight is estimated to be poor. Judgment is estimated to be poor. ASSESSMENT: This is a 31 y/o female with schizophrenia, likely paranoid type. She is thought blocked and is exuding increased hostility and paranoia in regards to inpatient treatment. She is revealing even less information about her thoughts, goals, opinions on her illness and treatment. She has signed a 72 hour notice for discharge, but is continuing to demonstrate poor insight. She has indicated that she does not have interest in outpatient follow up and will not relinquish any information on goals following discharge. She does not appear to be capable of maintaining ADL's outside structure of mental health facility at this time. PLAN: 1. Schizophrenia F20 a. Continue Abilify 10 mg at night. Abilify 2.5 mg qAM, as well as 2.5 mg prn for psychosis. b. Encourage group participation. c. Haldol and Ativan prn are prescribed, she has not taken any yet as of this time. d. Fasting lipid profile and glucose have been reviewed. e. Seek earlier outpatient psychiatric follow up appointment. Currently not scheduled to see psychiatrist till end of March.
[2017-02-23] MEDS: ARIPIprazole TAB 10 MG TAB PO SCH (21:42)
[2017-02-24 06:49] VITALS: BP_SYST 104; BP_SYST 112; BP_DIAS 64; BP_DIAS 72; PULSE 59; PULSE 67; TEMP 36.5
[2017-02-24] MEDS: ARIPIprazole TAB 5 MG TAB PO SCH (08:37)
[2017-02-24] MEDS: ALIVE MULTIVITAMIN PO SCH (08:38)
[2017-02-24] MEDS ORDERED: ABL10 PO (11:47)
--- NOTE | 2017-02-24 11:55 | Discharge Instructions ---
Discharge Information Report Includes Report will include the: Discharge Instructions & Summary Admission Admission Date / Time: Feb 15, 2017 at 18:09 Reason for Admission: Pyschosis Nos Discharge Discharge Diagnosis / Problem: Schizophrenia Condition at Discharge: Fair Discharge Goals Goal(s): Decrease discomfort, Improve disease control, Prevent Disease Progression Activity Recommendations Activity Limitations: resume your previous activity . Instructions / Follow-Up Instructions / Follow-Up . SPECIAL CARE INSTRUCTIONS: 1. Follow through with your scheduled aftercare appointments. If unable to keep an appointment, please call to reschedule. 2. Take your medication only as prescribed. Medication should not be changed or stopped without the approval of your doctor. In the event of worsening symptoms or concerns about side effects, contact your doctor immediately. 3. Utilize new healthy coping skills, anger management skills, and stress management skills learned during your hospitalization. Journal feelings and process them with a support person. Identify stressors or situations that may result in relapse, deterioration or inappropriate behaviors and develop a plan to deal with those issues. 4. If your coping skills are ineffective and you are in crisis, contact your outpatient providers for direction. If unable to reach your providers, please call the CAN HELP LINE AT or go to the closest Emergency Room. 5. Avoid alcohol and un-prescribed drugs. 6. You have been provided with the Mental Health Advance Directives Pamphlet for your review. AFTERCARE APPOINTMENTS: * Please call your insurance company prior to your scheduled appointment to confirm your aftercare providers are covered. Take your insurance information to your appointments. . Discharge / Aftercare Planning Primary Care Physician: Name: [facility] Phone Number: [phone] Appointment Notes: as needed Psychiatrist: Name: Ritika Watkins Date of Appointment: Mar 29, 2017 Time of Appointment: 930 Appointment Notes: You are on the wait list for earlier appt if one becomes available Therapist: Name Of Therapist: gypsy Adon: Name: declined . Follow-Up Care Plan for Follow-Up Care: Is scheduled to see Dr. Wallace March 29, but is also on his wait list for sooner appt. She is refusing all other recommended outpatient services Current Hospital Diet Patient's current hospital diet: Regular Diet Discharge Diet Recommended Diet: Regular Diet Procedures Procedures Performed: No Pending Studies Pending Studies at Discharge: No Medical Emergencies . Who to Call and When: Medical Emergencies: For questions or emergencies related to your hospital stay, please contact the Inpatient Behavioral Health Unit at [phone]. A psychiatric nurse practitioner is on-call 27/02 for the Behavioral Health Unit for emergencies At any time you feel your situation is an emergency, you may also call 911 immediately. . Non-Emergent Contact Non-Emergency issues call your: Psychiatrist Advance Directives Existing Advance Directive: No Do You Have an Existing Mental: No Existing Living Will: No Existing Power of Chief Cruiser: No Advance Directives Info Given: To Pt/S.O. Advance Directives Reason: Declines as Mental Health Visit. Discharge Summary Admission HPI Per the Admitting provider: The patient is a 31-year-old woman with a known diagnosis of schizophrenia. She presented yesterday in the emergency department with worsening paranoia, disorganized thinking, thought blocking, and anxiety. According to the record, the patient had been seen in the emergency room on 02/13/2017 and at that time asked for a prescription for aripiprazole, but she was referred back to an outpatient provider. The patient, herself, is not able to provide a coherent history, due to frequent thought blocking and possible distraction by auditory hallucinations. She been followed by a local psychiatrist who has since retired , and she had been referred for an outpatient evaluation by a psychiatrist, but cannot be seen until March 29. According to the patient's mother, with whom the patient lives, the patient had been showing symptoms such as decreased appetite, "broken up speech," and neglect of self-care. For example, she had not been showering. She was also demonstrating questionable judgment. For example, she had attempted to move a 500 pound treadmill from the family's home to the [facility]. Mother's report includes her assessment the patient was paranoid , and the mother noted the patient was making references to getting "signs" from "the devil." (This belief is not consistent with the patient's cheondoism or culture.) The patient, herself, reports that she had done very well on Abilify in doses that range between 5 mg and 15 mg. However, in December 2012 she ran out of her supply of Abilify, decided to "take myself off it," and felt as if she was doing reasonably well. A month later, she lost an uncle to suicide, and she felt that the fact that she was able to pass through this medical event without becoming ill was a sign that she was stable off medication. Apparently , she returned to her outpatient doctor's practice in May 2013 and according the patient her doctor agreed that it did not appear that she will require the medication any further and discontinued Abilify. She indicates that she has been lost to psychiatric follow-up since 2012. It is difficult to obtain an intercurrent history, but apparently the patient did reasonably well in the community until approximately a month ago, at which time the patient's mother began to notice the above reference symptoms of paranoia, disorganized thinking, and thought blocking. The patient has difficulty responding to questions concerning vegetative symptoms of depression. However, when I ask her repeatedly if she had been feeling sad or depressed, she became tearful, without answering the question. She also had difficulty formulating a response to questions such as, "are you having trouble sleeping," "have you noticed a change in her appetite," and "have you been having crying spells." When asked to explain her assertion that she was feeling "horrible," she circled the question repeatedly, but finally said that "people are very mean to me," in reference to people who live in her small [facility] [place]. She is then unable to give an example of the form that the "meanness" takes, and she finally perseverated by repeatedly saying, "It makes me feel isolated [to live in [place]]. I want to move away from there. It's an hour to [place]. I'm isolated." She denies any history of neglect or abuse. She also does not endorse any history of bethanie or hypomania, and no such history is identified by the patient's mother. However, the patient's father apparently carries a diagnosis of bipolar affective disorder. Hospital Course (1) Schizophrenia 02/17 -- The patient's thought processes appear to have tightened. Her associations are significantly less loose today, and although she continues to experience thought blocking, these instances are significantly less frequent. I suspect that she is experiencing auditory hallucinations, as evidenced by the fact that she often appears to be responding to, and distracted by internal stimuli. However, the patient reports that this is not the case. Information provided by the patient's oncology social worker suggests that the patient's mother, while very supportive, may be minimizing the patient's behaviors and conditions , so that the symptoms currently in evidence may have been present for longer period of time that originally described. Today, we are increasing the dose of aripiprazole from 10 mg daily to 15 mg daily. She continues to have some difficulty sleeping, but she slept 6-1/2 hours last night. The patient reports that this was true, but that she felt like her sleep was "fitful." She does not wish to be prescribed a hypnotic medication at this time. 02/18--employer relations representative provider, my first interaction with patient, she is very disorganized and was paranoid about staff going through her things. Will hold any additional Abilify titration as some sedation. Encouraged use of prn Haldol and Ativan. Fasting lipid profile and glucose reviewed and are within normal limits. 02/20 -- patient remained extremely disorganized to the point that she is unable to answer even basic questions with unrelated information. She is requesting that her Abilify dose be decreased drastically, and compromised with a decreased from 15 mg daily to 10 mg daily, and will also move it to bedtime and she reports sedation. She continues to refuse when necessary medications, and refuses to participate in any groups or unit programming. She is also refusing referrals for therapy or case management as an outpatient, and although she has an outpatient psychiatric appointment scheduled, it is not until March 29. We reviewed criteria for discharge, including a demonstrated ability to interpret reality and communicate with others, a good outpatient plan and adequate supports at home, and strongly encouraged her to start attending unit programming and to work on some of these goals, and to consider engaging with outpatient therapy and case management due to the chronic nature of her condition. Family meeting was already held with her mother, and patient will return to live with her in [place] at discharge. 02/21 - Increase Abilify to 2.5 mg. AM and 10 mg. HS. 02/22 - Patient is refusing to take the higher dose of Abilify, and refusing participation in unit programming. She continues to refuse recommendations for outpatient case management and therapy. She remained psychotic, thought blocked , and paranoid. She has not been aggressive so will discontinue her private room and try placing her with a roommate. 02/23 -Patient refusing to the AM dose of Abilify but will continue to recommend - Obtain info from mother re: patient's condition and opinion about readiness for discharge (2) Mood disorder The patient's primary diagnosis is schizophrenia. We do not have sufficient clinical data to diagnosis schizoaffective disorder at this time. It would appear that the patient is currently experiencing an exacerbation of schizophrenia, but she also presents with certain features that are consistent with depression, including decreased food consumption, insomnia, neglect of self -care, and tearfulness. 02/17 -- the patient reports that her mood is "better" and she says that today her mood is "okay." She continues to look blunted, but she is smiling appropriately more frequently, and on several occasions laughed appropriately. She notes that her anxiety has also diminished. 02/20 -- patient continues to deny mood symptoms, although she appears anxious and withdrawn. We will continue to monitor. Risk Factors Assessment : Yes /single/: Yes Higher / Fall in social status: No Access to guns: No Health problems: No Mental Health Diagnoses: Yes Substance use disorders: No Previous attempt: No Previous attempt;highly lethal: No Previous attempt; planned: No Previous attempt; didn't tell: No Family history of suicide: Yes Previous psychiatric stay: Yes Hopelessness: No Smoker: No Protective Factors Assessment Sikh beliefs: Yes : No Responsible for young children: No Employed: No Stable relationships: Yes Supportive family: Yes Good rapport with provider: Yes Absence of risk factors above: No Day of Discharge Assessment COURSE OF HOSPITALIZATION: The patient was initially admitted on a 302 involuntary commitment that she did not want to come in. She had decompensated in her schizophrenia to a point of being disorganized and unsafe. She later did agree to voluntary treatment and so no 303 was pursued. Unfortunately, the patient continued to resist any treatment other than taking Abilify, and refused most groups and other interventions. She cleans excessively while on the unit including her bathroom, her bedroom and even the kitchen area fearing contamination. She denied that this was obsessive in nature and appeared to have no insight into it. She only wanted to get back on her Abilify and had really wanted to only take 5 mg, however she was clearly still disorganized and psychotic and we recommended higher doses which she refused to take. She consistently refused the 2.5 mg Abilify in the morning but did only with encouragement, take 10 mg at bedtime. She says her plan is to work with her outpatient psychiatrist to get the dose down to 5 mg. Throughout her stay she showed significant thought blocking and disorganized thinking. It was difficult even for her to pick a pharmacy going back and forth between all of the pharmacies in the [place] area before deciding. She would repeat herself and usually repeat phrases um and you know without really being able to answer the questions posed. She consistently denied auditory or visual hallucinations but was clearly very guarded. She wore a hooded sweatshirt throughout her stay, most of the time with the marinelli up. She was maintained on a medically necessary private room initially during her stay but during the last several days was able to tolerate a roommate. She ultimately submitted a 72 hour notice to withdraw from treatment. There was no committable behavior, she could not be convinced to stay longer and her mother felt safe in having her return home, therefore she will be discharged today. DAY OF DISCHARGE ASSESSMENT: The patient is requesting discharge and has a 72 hour notice in. She demonstrates no clear unsafe behaviors although she remains disorganized and thought blocked. Family meeting was held again with her mother today who says that she is willing to take her home. She will have follow-up with Dr. Echavarria although not until March 29 although she is on a wait list for a sooner appointment. Today she is casually and appropriately dressed and again with her marinelli up. She makes good eye contact. Gait and station are within normal limits. Eye contact is good although at times her eyes start about the room. Her speech is halting, thoughts disorganized. Recent and remote memory is intact per conversation. Intelligence is estimated to be average. Insight and judgment are improved over admission although she remains with very little insight into her schizophrenia. Laboratory Test 02/15/17 00:00 02/15/17 15:20 02/15/17 15:21 02/16/17 00:00 Urine Color YELLOW Urine Appearance CLEAR Urine pH 6.5 Urine Specific [place] 1.028 Urine Protein 1+ Urine Glucose (UA) NEG Urine Ketones TRACE Urine Occult Blood NEG Urine Nitrite NEG Urine Bilirubin NEG Urine Urobilinogen NEG Urine Leukocyte Esterase NEG Urine WBC (Auto) 1-5 Urine RBC (Auto) 0-4 Urine Hyaline Casts (Auto) 1-5 Urine Epithelial Cells (Auto) 20-30 Urine Bacteria (Auto) NEG Urine Crystals CALCIUM OXALATE Urine Opiates Screen NEG Urine Methadone, Qualitative NEG Urine Barbiturates NEG Urine Phencyclidine (PCP) Level NEG Ur Amphetamine/Methamphetamine NEG MDMA (Ecstasy) Screen NEG Urine Benzodiazepines Screen NEG Urine Cocaine Metabolite NEG Urine Marijuana (THC) NEG POC Glucose 90 White Blood Count 9.52 Red Blood Count 4.38 Hemoglobin 13.5 Hematocrit 38.2 Mean Corpuscular Volume 87.2 Mean Corpuscular Hemoglobin 30.8 Mean Corpuscular Hemoglobin Concent 35.3 Platelet Count 282 Mean Platelet Volume 10.1 Neutrophils (%) (Auto) 74.6 Lymphocytes (%) (Auto) 17.4 Monocytes (%) (Auto) 7.6 Eosinophils (%) (Auto) 0.1 Basophils (%) (Auto) 0.2 Neutrophils # (Auto) 7.10 Lymphocytes # (Auto) 1.66 Monocytes # (Auto) 0.72 Eosinophils # (Auto) 0.01 Basophils # (Auto) 0.02 RDW Standard Deviation 40.3 RDW Coefficient of Variation 12.5 Immature Granulocyte % (Auto) 0.1 Immature Granulocyte # (Auto) 0.01 Sodium Level 140 Potassium Level 3.1 Chloride Level 105 Carbon Dioxide Level 26 Anion Gap 9.0 Blood Urea Nitrogen 13 Creatinine 0.57 Estimated GFR () 142.2 Estimated GFR (Non- 122.7 BUN/Creatinine Ratio 23.5 Random Glucose 94 Calcium Level 8.8 Total Bilirubin 0.4 Direct Bilirubin < 0.1 Aspartate Amino Transferase (AST) 15 Alanine Aminotransferase (ALT) 28 Alkaline Phosphatase 71 Total Protein 7.1 Albumin 3.9 Thyroid Stimulating Hormone (TSH) 0.686 Ethyl Alcohol mg/dL < 3.0 Urine Test NEG Test 02/18/17 08:09 Fasting Glucose 90 Triglycerides Level 67 Cholesterol Level 122 HDL Cholesterol 43 LDL Cholesterol, Calculated 66 VLDL Cholesterol, Calculated 13 Cholesterol/HDL Ratio 2.8 Total Time Total Time Spent (min): Greater than 30 minutes Total Time Included: examination of the patient, discharge planning, medication reconciliation, communication with other providers Tobacco Cessation at Discharge Smoking Status: Never Smoker FDA approved Prescription: non-smoker Problem Qualifiers (1) Schizophrenia: Schizophrenia type: unspecified Qualified Codes: F20.9 - Schizophrenia, unspecified
== END 2017-02-24 13:32 | disposition home or self-care (01) | DRG 885 ==
LOC: EDBD 14:21 → C.EDA 14:22 → C.MHU 18:09
PROVIDERS: ADMIT Psychiatry & Neurology Child & Adolescent Psychiatry; ATTEND Psychiatry & Neurology Child & Adolescent Psychiatry
DX: F20.9 Schizophrenia, unspecified (principal); F41.9 Anxiety disorder, unspecified; Z87.891 Personal history of nicotine dependence; Z81.8 Family history of other mental and behavioral disorders

== ENCOUNTER 2017-03-14 18:55 | Emergency (ER) | payer OTHER ==
[~2017-03-14] VITALS: Ht 170.2 cm; Wt 96.7 kg
[~2017-03-14 18:55] MED LIST changes: +ABL10 PO; -ABL5; -REVIEWED
[2017-03-14 19:00] VITALS: Ht 170.2 cm; Wt 96.7 kg
--- NOTE | 2017-03-14 20:01 | EMERGENCY ROOM VISIT NOTE ---
History First contact with patient: 19:13 Chief Complaint: MEDICATION REFILL REQUEST Stated Complaint: NEED PRESCRIPTION History of Present Illness The patient is a 31 year old female who presents to the Emergency Room requesting refill of her Abilify. Patient is here with her mother, who presents most of the history. Per mother, she is concerned the patient is having a relapse of worsening symptoms of her schizophrenia. Patient was recently admitted to [facility] from 02/15-02/24 for a flare of her schizophrenia, admitted as a 302 at this time. From discharge, patient was placed on Abilify which she states she took for about a week, then decided she did not need to take it and threw it all away. Now she is stating that she needs to go back on the Abilify because this is the only thing that helps her symptoms. The patient provides a very limited history due to her exacerbation of symptoms. Review of Systems Limited review of systems provided by patient and her mother due to clinical condition. Past Medical/Surgical History Medical Problems: (1) Anorexia (2) Anxiety (3) Schizophrenia Family History FH: bipolar disorder FATHER Suicide Paternal Uncle Social History Smoking Status: Never Smoker Marital Status: single Housing Status: lives with family Occupation Status: unemployed Current/Historical Medications Scheduled Aripiprazole (Abilify), 10 MG PO HS Aripiprazole (Abilify), 1 TAB PO HS Physical Exam Vital Signs Date Time Temp Pulse Resp B/P (MAP) Pulse Ox O2 Delivery O2 Flow Rate FiO2 03/14/17 23:03 36.6 60 18 134/76 100 03/14/17 22:24 60 18 134/76 100 Room Air 03/14/17 19:00 36.6 63 18 135/83 100 Room Air Physical Exam CONSTITUTIONAL: No acute distress. Well appearing and well nourished. Alert and oriented X 4 with normal affect. HEENT: Normocephalic, atraumatic. Pupils equal, round and reactive to light, EOMI. TMs normal. Pharynx normal. NECK: Supple, full active range of motion without discomfort. RESPIRATORY: Clear to auscultation bilaterally with no wheezing, crackles, rhonchi or stridor. Equal expansion bilaterally. CARDIOVASCULAR: Regular rate and rhythm with no murmurs, rubs or gallops. Normal peripheral perfusion. No edema. GASTROINTESTINAL: Soft, nontender, nondistended. Bowel sounds present in all quadrants. MUSCULOSKELETAL: Full range of motion of all joints without discomfort. INTEGUMENTARY: No rash or other significant dermatologic conditions noted. NEUROLOGIC: Cranial nerves II-XII grossly intact. No focal neurologic deficits noted. PSYCHIATRIC: Disrupted thought process with thought blocking (which mother reports is baseline for her), poor eye contact, very tearful. Medical Decision & Procedures Laboratory Results 03/14/17 20:08 Red Blood Count 4.70, Mean Corpuscular Volume 90.0, Mean Corpuscular Hemoglobin 31.3, Mean Corpuscular Hemoglobin Concent 34.8, Mean Platelet Volume 10.2, Neutrophils (%) (Auto) 67.7, Lymphocytes (%) (Auto) 23.8, Monocytes (%) (Auto) 7.3, Eosinophils (%) (Auto) 0.7, Basophils (%) (Auto) 0.4, Neutrophils # (Auto) 4.97, Lymphocytes # (Auto) 1.75, Monocytes # (Auto) 0.54, Eosinophils # (Auto) 0.05, Basophils # (Auto) 0.03 03/14/17 20:08 Test 03/14/17 20:06 03/14/17 20:08 03/14/17 20:15 Bedside Glucose 94 mg/dl (70-90) White Blood Count 7.35 K/uL (4.8-10.8) Red Blood Count 4.70 M/uL (4.2-5.4) Hemoglobin 14.7 g/dL (12.0-16.0) Hematocrit 42.3 % (37-47) Mean Corpuscular Volume 90.0 fL (80-100) Mean Corpuscular Hemoglobin 31.3 pg (25-34) Mean Corpuscular Hemoglobin Concent 34.8 g/dl (32-36) Platelet Count 268 K/uL (130-400) Mean Platelet Volume 10.2 fL (7.4-10.4) Neutrophils (%) (Auto) 67.7 % Lymphocytes (%) (Auto) 23.8 % Monocytes (%) (Auto) 7.3 % Eosinophils (%) (Auto) 0.7 % Basophils (%) (Auto) 0.4 % Neutrophils # (Auto) 4.97 K/uL (1.4-6.5) Lymphocytes # (Auto) 1.75 K/uL (1.2-3.4) Monocytes # (Auto) 0.54 K/uL (0.11-0.59) Eosinophils # (Auto) 0.05 K/uL (0-0.5) Basophils # (Auto) 0.03 K/uL (0-0.2) RDW Standard Deviation 41.0 fL (36.4-46.3) RDW Coefficient of Variation 12.5 % (11.5-14.5) Immature Granulocyte % (Auto) 0.1 % Immature Granulocyte # (Auto) 0.01 K/uL (0.00-0.02) Platelet Estimate NORMAL Anion Gap 3.0 mmol/L (3-11) Est Creatinine Clear Calc Drug Dose 146.1 ml/min Estimated GFR () 135.5 Estimated GFR (Non- 116.9 BUN/Creatinine Ratio 17.0 (10-20) Calcium Level 9.4 mg/dl (8.5-10.1) Total Bilirubin 0.3 mg/dl (0.2-1) Aspartate Amino Transf (AST/SGOT) 9 U/L (15-37) Alanine Aminotransferase (ALT/SGPT) 20 U/L (12-78) Alkaline Phosphatase 66 U/L (45-117) Total Protein 7.8 gm/dl (6.4-8.2) Albumin 4.0 gm/dl (3.4-5.0) Globulin 3.8 gm/dl (2.5-4.0) Albumin/Globulin Ratio 1.1 (0.9-2) Thyroid Stimulating Hormone (TSH) 1.810 uIu/ml (0.300-4.500) Salicylates Level < 1.7 mg/dl (2.8-20) Acetaminophen Level < 2 ug/ml (10-30) Ethyl Alcohol mg/dL < 3.0 mg/dl (0-3) Urine Color YELLOW Urine Appearance CLOUDY (CLEAR) Urine pH 7.5 (4.5-7.5) Urine Specific [place] 1.015 (1.000-1.030) Urine Protein NEG (NEG) Urine Glucose (UA) NEG (NEG) Urine Ketones NEG (NEG) Urine Occult Blood 3+ (NEG) Urine Nitrite NEG (NEG) Urine Bilirubin NEG (NEG) Urine Urobilinogen NEG (NEG) Urine Leukocyte Esterase NEG (NEG) Urine WBC (Auto) 1-5 /hpf (0-5) Urine RBC (Auto) 10-30 /hpf (0-4) Urine Hyaline Casts (Auto) 1-5 /lpf (0-5) Urine Epithelial Cells (Auto) 10-20 /lpf (0-5) Urine Bacteria (Auto) NEG (NEG) Urine Test NEG (NEG) Urine Opiates Screen NEG (NEG) Urine Methadone, Qualitative NEG (NEG) Urine Barbiturates NEG (NEG) Urine Phencyclidine (PCP) Level NEG (NEG) Ur Amphetamine/Methamphetamine NEG (NEG) MDMA (Ecstasy) Screen NEG (NEG) Urine Benzodiazepines Screen NEG (NEG) Urine Cocaine Metabolite NEG (NEG) Urine Marijuana (THC) NEG (NEG) Medications Administered Medications (Trade) Dose Ordered Sig/Areli Route Start Time Stop Time Status Last Admin Dose Admin Aripiprazole (Abilify Tab) 10 mg NOW STAT PO 03/14/17 22:22 03/14/17 22:23 DC 03/14/17 22:38 10 MG Medical Decision CC: Patient presenting with complaint of needing medication refill Interpretation of Labs: No leukocytosis, no anemia, no significant electrolyte abnormalities, normal renal function, normal liver enzymes. No UTI, negative UDS, negative alcohol, Tylenol, acetaminophen screens. Differential Diagnosis: Includes, but not limited to encounter for medications, exacerbation of schizophrenia/mood disorder. Medication Reconciliation: I attest that I have personally reviewed the patient' s current medication list. Vital signs review: I reviewed the patient's vital signs and interpret them as follows: T: Afebrile; BP: Normotensive; HR: Within normal limits; RR: Within normal limits; Pulse Ox: Within normal limits on room air. Summary: Patient was initially evaluated evaluated at bedside in room D5, history of physical exam performed. Arrangements were made for patient to be moved to room A 6 for further evaluation. I spoke with Ciara and Rabia, psychiatric liaisons, regarding the patient's concerns. The patient is known to both of them, and was evaluated by Rabia during her past admission. Patient denies any acute complaints at this time, but is tearful on exam and does not provide a good history. Orders were placed at bedside for psychiatric clearance workup, which is unremarkable. Patient discussed with Dr. Delacruz, who agrees with my assessment and plan. Patient was thoroughly evaluated by Rabia, psychiatric liaison, who states patient does not meet criteria for involuntary admission, and patient does not agree to voluntary admission. Patient does contract for safety, no SI or HI. After long discussion with Rabia, Dr. Delacruz, and the patient's mother, plan was made to prescribe the patient's current dose of Abilify (10 mg at bedtime) for 2 weeks with no refills, which will get her through to her appointment with her psychiatrist on 03/29. The medication will be held and distributed by the patient's mother to ensure that she is indeed taking it appropriately. This plan was discussed with the patient and she verbalized understanding and agreement. Patient was instructed to keep her follow-up appointment with the psychiatrist, she verbalized understanding. Patient was discharged home in stable condition and ambulatory. Impression Primary Impression: Encounter for medication refill Additional Impressions: Schizophrenia Mood disorder Departure Information Dispostion Home / Self-Care Condition GOOD (none) Prescriptions Aripiprazole (Abilify) 10 Mg Tab 1 TAB PO HS for 14 Days, #14 TAB 0 Refills Prov: Maura Burnham CRNP 03/14/17 Referrals No Doctor, Assigned (PCP) Patient Instructions Aripiprazole tablets, My [facility] Additional Instructions Take your Abilify every night before bed as prescribed. Keep your scheduled appointment to follow-up with your psychiatrist on 03/29. Please return to the emergency department for any worsening of your symptoms or other concerns. Problem Qualifiers Additional Impressions: Schizophrenia Schizophrenia type: unspecified Qualified Codes: F20.9 - Schizophrenia, unspecified
[2017-03-14 20:43] LABS: CALCIUM 9.4 mg/dl (8.5-10.1); CREATININE 0.66 mg/dl (0.60-1.20); POTASSIUM 3.9 mmol/L (3.5-5.1)
[2017-03-14 20:49] LABS: ACETAMINOPHEN < 2 ug/ml (10-30)
[2017-03-14 20:53] LABS: MANUAL MICROSCOPIC REQUIRED? NO; REVIEW REQ? NO; URINE APPEARANCE CLOUDY (CLEAR); URINE BILIRUBIN NEG (NEG); URINE COLOR YELLOW; URINE NITRITE NEG (NEG); URINE PH 7.5 (4.5-7.5); URINE SPECIFIC GRAVITY 1.015 (1.000-1.030); UROBILINOGEN NEG (NEG)
[2017-03-14 20:54] LABS: ALB/GLOB RATIO 1.1 (0.9-2); THYROID STIMULATING HORMONE 1.81 uIu/ml (0.300-4.500)
[2017-03-14 21:10] LABS: BENZODIAZEPINE, URINE NEG (NEG); COCAINE,URINE NEG (NEG); PHENCYCLIDINE, URINE NEG (NEG)
[2017-03-14 21:22] LABS: BASO % 0.4 %; BASO ABS # 0.03 K/uL (0-0.2); COMPLETE YES; EOS % 0.7 %; HEMATOCRIT 42.3 % (37-47); IG% 0.1 %; LYMPH % 23.8 %; LYMPH ABS # 1.75 K/uL (1.2-3.4); MEAN CORPUSCULAR HEMOGLOBIN 31.3 pg (25-34); MEAN CORPUSCULAR HGB CONC 34.8 g/dl (32-36); MEAN PLATELET VOLUME 10.2 fL (7.4-10.4); MONO % 7.3 %; NEUT % 67.7 %; PLATELET COUNT 268 K/uL (130-400); PLT ESTIMATE NORMAL; WHITE BLOOD COUNT 7.35 K/uL (4.8-10.8)
[2017-03-14] MEDS ORDERED: ARIPIprazole TAB 10 MG TAB PO STA (22:22)
[2017-03-14] MEDS ORDERED: ABL10 PO (22:53)
[2017-03-14 23:03] VITALS: BP 134/76; PULSE 60; TEMP 36.6; O2SAT 100
[2017-03-19 19:29] LABS: SYNTHETIC CANNABINOIDS QL URIN NEGATIVE (Negative)
== END 2017-03-14 23:00 | disposition home or self-care (01) ==
LOC: C.EDB 18:57 → C.EDA 23:00
DX: Z76.0 Encounter for issue of repeat prescription (principal); F20.9 Schizophrenia, unspecified; F39 Unspecified mood [affective] disorder; R63.0 Anorexia; F41.9 Anxiety disorder, unspecified